=== PATIENT | female | born 1995 | race Caucasian/White ===

== ENCOUNTER 2020-08-23 09:07 | Outpatient (REF) | payer OTHER, SELFPAY ==
[2020-08-23 13:37] LABS: HCG Quantitative 657 mIU/mL
[2020-08-23 14:13] LABS: CT PCR NOT DETECTED (Not Detect.); NG PCR NOT DETECTED (Not Detect.)
[2020-08-24 15:15] LABS: BV Int Neg Control Negative (Negative); BV Int Pos Control Positive (Positive)
== END 2020-08-23 09:08 | disposition home or self-care (01) ==
LOC: HO.LAB 09:07
PROVIDERS: PCP Physician Assistant; Visit Provider Advanced Practice Midwife
DX: O20.0 Threatened abortion (principal); O26.891 Other specified pregnancy related conditions, first trimester; N92.6 Irregular menstruation, unspecified; R10.2 Pelvic and perineal pain; O99.211 Obesity complicating pregnancy, first trimester; E66.01 Morbid (severe) obesity due to excess calories; Z3A.00 Weeks of gestation of pregnancy not specified
CPT/HCPCS: 36415; 81025; 84702; 87480; 87491; 87510; 87591; 87660; 99212

== ENCOUNTER 2020-08-23 10:12 | Outpatient (REF) | payer OTHER, SELFPAY ==
--- NOTE | ~2020-08-23 | US_ITS ---
EXAMINATION: OBSTETRICAL ULTRASOUND, FIRST TRIMESTER HISTORY: 25-year-old with uncertain LMP Viability LMP: 07/22/2020 COMPARISON: None TECHNIQUE: Real time transabdominal imaging with color and M-mode Doppler. Transvaginal ultrasound was performed using an endovaginal probe. FINDINGS: Empty uterine cavity with the endometrial thickness of 1.12 cm. Left ovary contains an anechoic cyst that measures 3.6 x 2.4 x 2.5 cm. Left ovary measured 2.6 x 3.4 cm. There are no adnexal mass seen. Free fluid in the cul-de-sac is noted. GESTATIONAL AGE: 1. GA from LMP: 4.4 wks 2. GA from AUA: N/A wks ESTIMATED DATE OF DELIVERY: 1. PARK from LMP: 04/28/2021 2. PARK from AUA: N/A US/US OB pelvic and transvaginal IMPRESSION: 1. No evidence of IUP. 2. An anechoic cyst in the left ovary measuring 3.6 x 2.4 x 2.5 cm. Right ovary is within normal limits. No discrete adnexal mass seen 3. Free fluid in the cul-de-sac Discussion: I informed the patient that the today's ultrasound findings can be consistent with the early IUP. However given at this gestational age, we should be able to identify a intrauterine gestational sac. No discrete masses were seen in the adnexa. However ectopic cannot be ruled out. The source of the free fluid in the cul-de-sac is unclear. Agree with the serial serum beta-hCG levels. I gave her ectopic warnings. A follow-up ultrasound as clinically indicated. Thank you very much for this referral. This note was generated with a voice recognition program. Please excuse any errors which may have been overlooked during my review of this note. Sometimes these errors may affect the content or meaning of a given sentence.
== END 2020-08-23 10:13 | disposition home or self-care (01) ==
LOC: HO.US 10:12
PROVIDERS: PCP Physician Assistant; Visit Provider Advanced Practice Midwife
DX: O26.891 Other specified pregnancy related conditions, first trimester (principal); R10.2 Pelvic and perineal pain
CPT/HCPCS: 76801; 76817

== ENCOUNTER 2020-08-25 08:46 | Outpatient (REF) | payer OTHER, SELFPAY ==
[2020-08-25 10:05] LABS: HCG Quantitative 1052 mIU/mL
== END 2020-08-25 08:47 | disposition home or self-care (01) ==
LOC: HO.LAB 08:46
PROVIDERS: PCP Physician Assistant; Visit Provider Advanced Practice Midwife
DX: O20.0 Threatened abortion (principal)
CPT/HCPCS: 36415; 84702

== ENCOUNTER 2020-08-27 06:21 | Outpatient (REF) | payer OTHER, SELFPAY | END 2020-08-27 06:22 | disposition home or self-care (01) | LOC: HO.LAB 06:21 | PROVIDERS: PCP Physician Assistant; Visit Provider Advanced Practice Midwife | DX: Z13.89 Encounter for screening for other disorder (principal) ==

== ENCOUNTER 2020-08-27 06:32 | Emergency (ER) | payer OTHER, SELFPAY ==
--- NOTE | ~2020-08-27 | US_ITS ---
EXAMINATION: US OBSTETRICAL ULTRASOUND CLINICAL INFORMATION: Abdominal pain. Positive test. HCG 1952. COMPARISON: Previous exam 08/23/2020. LMP: 07/22/2020. Gestational age by maternal dates is 5 weeks 1 day. Estimated date of delivery by maternal dates is 04/28/2021. TECHNIQUE: Transabdominal and transvaginal first trimester OB ultrasound. Transvaginal exam was performed for better visualization of the gestational sac. FINDINGS: The uterus measures 8 x 4 x 5.3 cm in dimension. No focal uterine lesion is seen. There is an intrauterine cyst adjacent to the endometrium. This measures 0.5 x 0.6 x 0.4 cm. This has a thick echogenic wall suggestive of a gestational sac. There is also question of a yolk sac. Mean sac diameter suggests gestational age of 5 weeks 0 days. The cervix is normal appearing. The right ovary measures 2.5 x 1.4 x 1.6 cm. The left ovary measures 3.4 x 2.9 x 2.9 cm. There is a 3 x 2.8 x 3.5 cm simple left ovarian cyst. There is a a small amount of fluid in the pelvis. US/US OB <= 14 weeks fetus IMPRESSION: New intrauterine gestational sac and question yolk sac. Mean sac diameter suggests gestational age of 5 weeks 0 days. This agrees with date from LMP. 3 x 2.8 x 3.5 cm left ovarian cyst. Small amount of fluid in the pelvis.
--- NOTE | ~2020-08-27 | US_ITS ---
EXAMINATION: US OBSTETRICAL ULTRASOUND CLINICAL INFORMATION: Abdominal pain. Positive test. HCG 1952. COMPARISON: Previous exam 08/23/2020. LMP: 07/22/2020. Gestational age by maternal dates is 5 weeks 1 day. Estimated date of delivery by maternal dates is 04/28/2021. TECHNIQUE: Transabdominal and transvaginal first trimester OB ultrasound. Transvaginal exam was performed for better visualization of the gestational sac. FINDINGS: The uterus measures 8 x 4 x 5.3 cm in dimension. No focal uterine lesion is seen. There is an intrauterine cyst adjacent to the endometrium. This measures 0.5 x 0.6 x 0.4 cm. This has a thick echogenic wall suggestive of a gestational sac. There is also question of a yolk sac. Mean sac diameter suggests gestational age of 5 weeks 0 days. The cervix is normal appearing. The right ovary measures 2.5 x 1.4 x 1.6 cm. The left ovary measures 3.4 x 2.9 x 2.9 cm. There is a 3 x 2.8 x 3.5 cm simple left ovarian cyst. There is a a small amount of fluid in the pelvis. US/US OB transvaginal IMPRESSION: New intrauterine gestational sac and question yolk sac. Mean sac diameter suggests gestational age of 5 weeks 0 days. This agrees with date from LMP. 3 x 2.8 x 3.5 cm left ovarian cyst. Small amount of fluid in the pelvis.
[2020-08-27 07:23] VITALS: BP 135/79; PULSE 91; RESP 18; TEMP 36.7; O2SAT 100; BMI 46.0
--- NOTE | 2020-08-27 07:36 | ED.ABDPAIN ---
HPI - Abdominal Pain General Chief Complaint: Abdominal Pain Stated Complaint: PAIN RIGHT SIDE - 5 WEEKS PREG Time Seen by Provider: 08/27/20 07:36 Source: patient Mode of arrival: ambulatory Limitations: no limitations History of Present Illness HPI narrative: patient comes in because she is worried about a tubal MD elicited complaint: abdominal pain Pertinent past history: none Onset (ago): hour(s) Pain Consistency: intermittent Location: diffuse Severity: mild Quality: aching Radiation: RUQ, RLQ and R flank Exacerbating factors: nothing Relieving factors: nothing Related Data Previous Rx's Medication Instructions Recorded vitamin with calcium 1 tab PO DAILY #30 tab 08/23/20 no.72-iron 27 mg-folic acid 1 mg tablet Allergies Allergy/AdvReac Type Severity Reaction Status Date / Time No Known Allergies Allergy Verified 08/23/20 09:17 [No Known Allergies*] Review of Systems Constitutional: Reports no additional constitutional complaints Eyes: Reports no additional eye complaints Denies dizziness Cardiovascular: Reports no additional cardiovascular complaints Respiratory: Reports as per HPI Gastrointestinal: Reports no additional gastrointestinal complaints Genitourinary: Reports no additional female genitourinary complaints Musculoskeletal: Reports no additional musculoskeletal complaints Skin/Breast: Denies rash Reports system reviewed and no additional complaints, except as documented, Denies dizziness and Denies Sensory deficit (Neuro) Psychiatric: Denies anxiety Physical Exam Vital Signs: Vital Signs: Last Vital Signs Temp 98.3 F 08/27/20 12:48 Pulse 74 08/27/20 12:48 Resp 16 08/27/20 12:48 BP 109/59 L 08/27/20 12:48 Pulse Ox 99 08/27/20 12:48 Body Mass Index 46.0 Const: General: healthy appearing Nutritional Appearance: obese Orientation/consciousness: oriented to person and patient oriented x3 Limitations: no limitations HENMT: Head: Yes normal to inspection Ears: external ears normal General nose exam: Normal external nose present Mouth: Normal oral and palatal mucosa present and oropharynx normal Throat: Yes posterior oropharynx normal Eyes: General: appearance normal, both eyes and all related structures Neck: Other: supple Neck: Yes normal visual inspection Chest: Chest palpation & inspection: normal inspection of the chest Resp: Auscultation: clear to auscultation bilaterally Cardio: Jugular venous distension: no JVD Rate: regular rate Rhythm: regular rhythm Heart sounds: S1 normal heart sound present and S2 normal heart sound present GI: Inspection: Yes normal to inspection Palpation (GI): Soft to palpation, nontender and No hepatosplenomegaly present Auscultation: normal bowel sounds : General: Yes no CVA tenderness Back/Spine/Pelvis: Back: no CVA tenderness Skin: General skin exam: no rashes or lesions noted Neuro: General: oriented to person and patient oriented x3 Cranial nerves: Yes CN's II-XII intact bilaterally Motor exam (neuro): 5/5 motor strength present throughout Sensory Exam: No Sensory deficit (Neuro) Extrem: General: Yes normal to inspection Psych: Appearance: grossly normal MDM - Abdominal Pain MDM Narrative Medical decision making narrative: Patient with intrauterine will dc home Lab Data Result diagrams: 08/27/20 08:12 08/27/20 08:12 Labs: Lab Results 08/27/20 08/27/20 08/27/20 Range/Units 08:12 08:12 08:12 WBC 7.5 (4.8-10.8) X10*3/uL RBC 4.72 (4.20-5.50) X10*6/uL Hgb 12.7 (12.0-16.0) g/dl Hct 38.8 (37-47) % MCV 82.2 (80-98) fL MCH 26.9 L (27.0-33.0) pg MCHC 32.7 (31.0-35.0) g/dl RDW 13.2 (11.0-16.0) % Plt Count 311 (160-400) X10*3/uL MPV 9.9 (9.4-12.3) fL Immature Gran % (Auto) 0.4 (0.0-0.4) % Neut % (Auto) 67.9 (45-73) % Lymph % (Auto) 23.8 (20-40) % [place] % (Auto) 5.4 (2-11) % Eos % (Auto) 2.1 (0-4) % Baso % (Auto) 0.4 (0-2) % Lymph # (Auto) 1.8 (1.2-4.9) X10*3/uL [place] # (Auto) 0.4 (0.1-1.2) X10*3/uL Eos # (Auto) 0.2 (0.0-0.4) X10*3/uL Baso # (Auto) 0.0 (0.0-0.2) X10*3/uL Abs Immat Gran (auto) 0.03 (0.00-0.03) X10*3/uL Absolute Neuts (auto) 5.1 (2.0-8.3) X10*3/uL Absolute Nucleated RBC 0.000 (0.0-0.012) X10*3/uL Nucleated RBC % (auto) 0.0 (0.0-0.2) /100WBC Sodium 137 (135-145) mmol/L Potassium 4.2 (3.3-5.1) mmol/L Chloride 103 (96-108) mmol/L Carbon Dioxide 25 (22-29) mmol/L Anion Gap 13 (12-20) BUN 11 (9-16) mg/dL Creatinine 0.66 (0.5-1.4) mg/dL Estim Creat Clear Calc 154.5 Estimated GFR > 60 Random Glucose 92 (60-115) mg/dL Calcium 8.8 (8.4-10.2) mg/dL Total Bilirubin 0.3 (0.0-1.0) mg/dL Direct Bilirubin < 0.2 (0.0-0.5) mg/dL AST 14 (5-31) U/L ALT 16 (0-31) U/L Alkaline Phosphatase 77 (39-117) U/L Total Protein 7.0 (6.5-8.0) g/dL Albumin 4.2 (3.5-5.0) g/dL Lipase 48 (8-78) U/L Beta HCG, Quant 1952 mIU/mL Urine Color Urine Appearance Urine pH (5.0-8.0) Ur Specific [place] (1.005-1.025) Urine Protein (NEG-TRACE) MG/DL Urine Glucose (UA) (NEG) MG/DL Urine Ketones (NEG) MG/DL Urine Blood (NEG) Urine Nitrite (NEG) Ur Leukocyte Esterase (NEG) 08/27/20 Range/Units 08:19 WBC (4.8-10.8) X10*3/uL RBC (4.20-5.50) X10*6/uL Hgb (12.0-16.0) g/dl Hct (37-47) % MCV (80-98) fL MCH (27.0-33.0) pg MCHC (31.0-35.0) g/dl RDW (11.0-16.0) % Plt Count (160-400) X10*3/uL MPV (9.4-12.3) fL Immature Gran % (Auto) (0.0-0.4) % Neut % (Auto) (45-73) % Lymph % (Auto) (20-40) % [place] % (Auto) (2-11) % Eos % (Auto) (0-4) % Baso % (Auto) (0-2) % Lymph # (Auto) (1.2-4.9) X10*3/uL [place] # (Auto) (0.1-1.2) X10*3/uL Eos # (Auto) (0.0-0.4) X10*3/uL Baso # (Auto) (0.0-0.2) X10*3/uL Abs Immat Gran (auto) (0.00-0.03) X10*3/uL Absolute Neuts (auto) (2.0-8.3) X10*3/uL Absolute Nucleated RBC (0.0-0.012) X10*3/uL Nucleated RBC % (auto) (0.0-0.2) /100WBC Sodium (135-145) mmol/L Potassium (3.3-5.1) mmol/L Chloride (96-108) mmol/L Carbon Dioxide (22-29) mmol/L Anion Gap (12-20) BUN (9-16) mg/dL Creatinine (0.5-1.4) mg/dL Estim Creat Clear Calc Estimated GFR Random Glucose (60-115) mg/dL Calcium (8.4-10.2) mg/dL Total Bilirubin (0.0-1.0) mg/dL Direct Bilirubin (0.0-0.5) mg/dL AST (5-31) U/L ALT (0-31) U/L Alkaline Phosphatase (39-117) U/L Total Protein (6.5-8.0) g/dL Albumin (3.5-5.0) g/dL Lipase (8-78) U/L Beta HCG, Quant mIU/mL Urine Color YELLOW Urine Appearance HAZY Urine pH 6.5 (5.0-8.0) Ur Specific [place] 1.020 (1.005-1.025) Urine Protein NEG (NEG-TRACE) MG/DL Urine Glucose (UA) NEG (NEG) MG/DL Urine Ketones NEG (NEG) MG/DL Urine Blood NEG (NEG) Urine Nitrite NEG (NEG) Ur Leukocyte Esterase NEG (NEG) Imaging Data US - abdomen: Radiologist's impression: intrauterine Discharge Plan Discharge Clinical Impression: Intrauterine Patient Disposition: Home, Self-Care Instructions: (ED) Prescriptions: No Action Vitamin Plus Low Iron 27 mg iron- 1 mg tablet 1 tab PO DAILY Qty: 30 RF: 11 Referrals: Juan Garcia PA-C [Primary Care Provider] - 2 days [facility] Past Medical History Medical History Morbid obesity with BMI of 45.0-49.9, adult Family History Family History Maternal Grandmother History of breast cancer Social History Social History Alcohol intake: never Smoking Status: Never smoker Advance Directives: Yes Advance Directives Information Provided: Yes Advance Directives on File: No
[2020-08-27 08:15] LABS: MANUAL DIFF FLAG NO
[2020-08-27 08:21] LABS: Basophils Percent Auto 0.4 % (0-2); Eosinophils Absolute Auto 0.2 X10*3/uL (0.0-0.4); Eosinophils Percent Auto 2.1 % (0-4); Hematocrit 38.8 % (37-47); Hemoglobin 12.7 g/dl (12.0-16.0); Imm Gran Abs Auto 0.03 X10*3/uL (0.00-0.03); Imm Gran Pct Auto 0.4 % (0.0-0.4); Lymphocytes Absolute Auto 1.8 X10*3/uL (1.2-4.9); Lymphocytes Percent Auto 23.8 % (20-40); Mean Corpuscular HGB Conc 32.7 g/dl (31.0-35.0); Mean Corpuscular Hemoglobin 26.9 pg (27.0-33.0); Mean Corpuscular Volume 82.2 fL (80-98); Mean Platelet Volume 9.9 fL (9.4-12.3); Monocytes Absolute Auto 0.4 X10*3/uL (0.1-1.2); Monocytes Percent Auto 5.4 % (2-11); Neutrophils Absolute Auto 5.1 X10*3/uL (2.0-8.3); Neutrophils Percent Auto 67.9 % (45-73); Platelet Count 311 X10*3/uL (160-400); Red Blood Count 4.72 X10*6/uL (4.20-5.50); Red Cell Distribution Width 13.2 % (11.0-16.0); White Blood Count 7.5 X10*3/uL (4.8-10.8)
[2020-08-27 08:28] LABS: Glucose Urine UA NEG (NEG); Leukocyte Esterase Urine NEG (NEG); Nitrite Urine NEG (NEG); PH 6.5 (5.0-8.0); Urine Blood NEG (NEG); Urine Ketones NEG (NEG); Urine Protein NEG (NEG-TRACE)
[2020-08-27 08:29] LABS: Appearance Urine HAZY; Color Urine YELLOW
[2020-08-27 08:35] VITALS: BP 121/74; PULSE 76; RESP 20; TEMP 36.8; O2SAT 100
[2020-08-27 08:51] LABS: Lipase 48 U/L (8-78)
[2020-08-27 08:52] LABS: Alanine Aminotransferase 16 U/L (0-31); Albumin Level 4.2 g/dL (3.5-5.0); Alkaline Phosphatase 77 U/L (39-117); Anion Gap 13 (12-20); Aspartate Amino Transferase 14 U/L (5-31); Bilirubin Direct < 0.2 mg/dL (0.0-0.5); Bilirubin Total 0.3 mg/dL (0.0-1.0); Blood Urea Nitrogen 11 mg/dL (9-16); Calcium 8.8 mg/dL (8.4-10.2); Carbon Dioxide 25 mmol/L (22-29); Chloride 103 mmol/L (96-108); Creatinine Clr Calc Pharmacy 154.5; Estimated Glomerular Filt Rate > 60; Glucose Random 92 mg/dL (60-115); Potassium 4.2 mmol/L (3.3-5.1); Sodium 137 mmol/L (135-145)
[2020-08-27 08:59] LABS: HCG Quantitative 1952 mIU/mL
[2020-08-27 12:00] VITALS: BP 125/70; PULSE 75; RESP 20; O2SAT 100
[2020-08-27 12:48] VITALS: BP 109/59; PULSE 74; RESP 16; TEMP 36.8; O2SAT 99
== END 2020-08-27 13:10 | disposition home or self-care (01) ==
PROVIDERS: Emergency Provider Emergency Medicine; PCP Physician Assistant
DX: O26.891 Other specified pregnancy related conditions, first trimester (principal); R10.31 Right lower quadrant pain; R10.11 Right upper quadrant pain; Z3A.01 Less than 8 weeks gestation of pregnancy
CPT/HCPCS: 36415; 76801; 76817; 80048; 80076; 81003; 83690; 84702; 85025; 99284

== ENCOUNTER 2020-09-04 13:19 | Outpatient (REF) | payer OTHER, SELFPAY ==
--- NOTE | ~2020-09-04 | US_ITS ---
EXAMINATION: US OB PELVIS AND TRANSVAGINAL CLINICAL INFORMATION: Encounter for supervision of normal . COMPARISON: None TECHNIQUE: Routine transabdominal ultrasound pelvis is performed. FINDINGS: There is an intrauterine gestational sac with pole not yet seen. The mean sac diameter is 1.48 cm corresponding to 6 weeks and 2 days and an PARK of 04/28/2021. A small subchorionic bleed is visualized adjacent to the left ovary. There is visualization of yolk sac, gestational sac. No pole or motion seen. The right ovary measures 2.1 x 1.2 x 1.4 cm and appears unremarkable. The left ovary measures 3.5 x 3.4 x 3.5 cm with an anechoic corpus luteal cyst measuring 2.7 x 2.6 cm. There is no free fluid. US/US OB pelvic and transvaginal IMPRESSION: There is a single intrauterine gestational sac with a mean gestational sac measurement corresponding to 6 weeks 2 days. No pole is seen. The yolk sac is visualized. There is an anechoic cyst left ovary measuring 2.7 x 2.6 x 3.0 cm. The right ovary is unremarkable.
== END 2020-09-04 13:20 | disposition home or self-care (01) ==
LOC: HO.US 13:19
PROVIDERS: PCP Physician Assistant; Visit Provider Advanced Practice Midwife
DX: O26.891 Other specified pregnancy related conditions, first trimester (principal); R10.2 Pelvic and perineal pain
CPT/HCPCS: 76801; 76817

== ENCOUNTER 2020-09-11 13:58 | Outpatient (REF) | payer OTHER, SELFPAY ==
--- NOTE | ~2020-09-11 | US_ITS ---
EXAMINATION: US OBSTETRICAL ULTRASOUND CLINICAL INFORMATION: Threatened ; O20.0 COMPARISON: Obstetrical ultrasound 09/04/2020, 08/27/2020. LMP: 07/22/2020. Gestational age by maternal dates is 7 weeks 2 days. Estimated date of delivery by maternal dates is 04/28/2021. TECHNIQUE: Ultrasound of the maternal pelvis is performed using transabdominal and transvaginal transducers. Transvaginal imaging is performed due to inadequate visualization transabdominally. M-mode Doppler is also performed. FINDINGS: There is single intrauterine gestational sac with visible yolk sac and embryo. No embryo demonstrated on prior ultrasound 09/04/2020. There is small subchorionic hemorrhage/hematoma measuring under 1 cm. cardiac activity estimated at 93 bpm versus maternal sampling due to the small embryo size. CRL (crown rump length): 0.46 cm (6 weeks 2 days +/- 4 days). PARK (estimated date of delivery): 05/05/2021 +/- 4 days. MATERNAL ADNEXA: The right maternal ovary measures 3.0 x 1.3 x 1.4 cm. The left maternal ovary measures 4.2 x 3.1 x 3.7 cm. There is a simple left intraovarian cyst measuring 3.1 x 2.3 x 2.9 cm. No internal complexity or associated color flow. No maternal pelvic ascites. US/US OB pelvic and transvaginal IMPRESSION: 1. There is expected progression of the intrauterine , now with visible embryo. Small subchorionic hemorrhage under 1 cm. Embryo heart rate 93 bpm versus maternal sampling due to small size. This may be reassessed at follow-up ultrasound. 2. Ultrasound gestational age of 6 weeks 2 days +/- 4 days. 3. Estimated date of delivery is 05/05/2021 +/- 4 days. 4. Simple left maternal adnexal ovarian cyst 3 cm. No pelvic ascites.
== END 2020-09-11 13:59 | disposition home or self-care (01) ==
LOC: HO.HMGCX 13:58
PROVIDERS: Visit Provider Advanced Practice Midwife
DX: O20.0 Threatened abortion (principal); Z3A.00 Weeks of gestation of pregnancy not specified
CPT/HCPCS: 76801; 76817

== ENCOUNTER → 2020-09-19 11:36 | Outpatient (BNVA) | payer OTHER, SELFPAY | PROVIDERS: PCP Physician Assistant; Visit Provider Advanced Practice Midwife ==

== ENCOUNTER 2020-09-19 13:57 | Outpatient (REF) | payer OTHER, SELFPAY ==
--- NOTE | ~2020-09-19 | US_ITS ---
EXAMINATION: US OB PELVIC AND TRANSVAGINAL. CLINICAL INFORMATION: Follow up low FHR. Check viability. LMP 04/28/2021. COMPARISON: Ultrasound pelvis 09/11/2020, 09/04/2020, 08/27/2020 and 08/23/2020. TECHNIQUE: Transabdominal imaging of pelvis was performed. FINDINGS: A single live intrauterine fetus with a crown-rump length of 1.0 cm corresponding to 7 weeks and 1 day and PARK of 05/07/2021. The heart rate is low measuring 72 bpm. There is visualization of yolk sac and pole. The yolk sac is slightly enlarged. The uterus measures 8.8 cm in length, 4.3 cm in AP and 6.6 cm in transverse dimension. The right ovary measures 2.5 x 1.5 x 1.6 cm and appears unremarkable. Left ovary measures 3.6 x 2.8 x 3.6 cm. There is an anechoic cyst measuring 2.3 x 2.7 x 3.0 cm. There is no free fluid in the cul-de-sac. US/US OB pelvic and transvaginal IMPRESSION: Single live intrauterine fetus with a low heart rate of 72 bpm. Previously FHR measured 93 bpm. The yolk sac is slightly larger. Small left ovarian cyst measuring 3.0 cm. Previously it measured 3.1 cm.
== END 2020-09-19 13:58 | disposition home or self-care (01) ==
LOC: HO.US 13:57
PROVIDERS: PCP Physician Assistant; Visit Provider Advanced Practice Midwife
DX: O41.8X10 Other specified disorders of amniotic fluid and membranes, first trimester, not applicable or unspecified (principal); O46.8X1 Other antepartum hemorrhage, first trimester
CPT/HCPCS: 76801; 76817

== ENCOUNTER 2020-09-23 12:47 | Outpatient (REF) | payer OTHER, SELFPAY ==
--- NOTE | ~2020-09-23 | US_ITS ---
EXAMINATION: FIRST TRIMESTER OB ULTRASOUND CLINICAL INFORMATION: Threatened COMPARISON: Previous pelvic ultrasound most recent 09/19/2020 TECHNIQUE: Transabdominal first trimester OB ultrasound FINDINGS: There is a large intrauterine gestational sac. [place]-rump length measures 0.5 cm. This is decreased in size from 1 cm on 11/03/2020 exam. No heart activity is seen. There is a small subchorionic fluid collection. No yolk sac is seen. The right maternal ovary is not seen. The left maternal ovary measures 3.3 x 2.8 x 3.6 cm and contains a 2.5 x 2.3 x 3 cm simple cyst. There is no fluid in the pelvis pelvis. US/US OB pelvic and transvaginal IMPRESSION: Interval decrease in size in the pole and no heart activity seen suggestive of demise.
[2020-09-23 15:05] LABS: HCG Quantitative 64492 mIU/mL
== END 2020-09-23 12:48 | disposition home or self-care (01) ==
LOC: HO.HMGCX 12:47
PROVIDERS: PCP Physician Assistant; Visit Provider Advanced Practice Midwife
DX: O20.0 Threatened abortion (principal)
CPT/HCPCS: 36415; 76801; 76817; 84702

== ENCOUNTER → 2020-09-24 11:55 | Outpatient (BNVA) | payer OTHER, SELFPAY | PROVIDERS: PCP Physician Assistant; Visit Provider Advanced Practice Midwife | DX: Z71.2 Person consulting for explanation of examination or test findings (principal); O02.1 Missed abortion | CPT/HCPCS: 99212 ==

== ENCOUNTER → 2020-09-30 10:39 | Outpatient (BNVA) | payer OTHER, SELFPAY | PROVIDERS: PCP Physician Assistant; Visit Provider Obstetrics & Gynecology | DX: Z13.89 Encounter for screening for other disorder (principal) | CPT/HCPCS: 99212 ==

== ENCOUNTER 2020-10-04 09:36 | Outpatient (REF) | payer OTHER, SELFPAY ==
--- NOTE | ~2020-10-04 | US_ITS ---
EXAMINATION: ULTRASOUND OB LIMITED CLINICAL INFORMATION: Missed COMPARISON: Previous ultrasounds most recent 09/23/2020 TECHNIQUE: Transabdominal pelvic ultrasound was performed. FINDINGS: The uterus is anteverted and measures 9.8 x 4.7 x 5.3 cm in dimension. Intrauterine gestational sac is no longer seen. The endometrium does not appear thickened. Endometrial thickness measures 0.6 cm. The right ovary measures 2 x 1.3 x 1.8 cm and is normal-appearing. The left ovary measures 3.1 x 1.9 x 2.3 cm. There is a 1.7 x 1.1 x 1.6 cm simple cyst, decreased from previous exam. There is no fluid in the pelvis. US/US OB limited IMPRESSION: Intrauterine gestational sac no longer seen consistent with a spontaneous . The endometrium does not appear thickened measuring 0.6 cm.
== END 2020-10-04 09:37 | disposition home or self-care (01) ==
LOC: HO.US 09:36
PROVIDERS: Visit Provider Obstetrics & Gynecology
DX: O02.1 Missed abortion (principal)
CPT/HCPCS: 76815

== ENCOUNTER → 2020-10-16 10:52 | Outpatient (BNVA) | payer OTHER, SELFPAY | PROVIDERS: PCP Physician Assistant; Visit Provider Obstetrics & Gynecology ==

== ENCOUNTER 2021-07-01 13:32 | Outpatient (REF) | payer OTHER, SELFPAY ==
[2021-07-01 13:54] LABS: MANUAL DIFF FLAG NO
[2021-07-01 14:10] LABS: Basophils Percent Auto 0.3 % (0-2); Eosinophils Absolute Auto 0.1 X10*3/uL (0.0-0.4); Eosinophils Percent Auto 1.1 % (0-4); Hematocrit 41.3 % (37.0-47.0); Hemoglobin 13.3 g/dl (12.0-16.0); Imm Gran Abs Auto 0.04 X10*3/uL (0.00-0.03); Imm Gran Pct Auto 0.4 % (0.0-0.4); Lymphocytes Absolute Auto 1.3 X10*3/uL (1.2-4.9); Lymphocytes Percent Auto 12.5 % (20-40); Mean Corpuscular HGB Conc 32.2 g/dl (31.0-35.0); Mean Corpuscular Hemoglobin 26.2 pg (27.0-33.0); Mean Corpuscular Volume 81.5 fL (80.0-98.0); Mean Platelet Volume 9.7 fL (9.4-12.3); Monocytes Absolute Auto 0.5 X10*3/uL (0.1-1.2); Monocytes Percent Auto 5.2 % (2-11); Neutrophils Percent Auto 80.5 % (45-73); Platelet Count 371 X10*3/uL (160-400); Red Blood Count 5.07 X10*6/uL (4.20-5.50); Red Cell Distribution Width 13.1 % (11.0-16.0)
[2021-07-01 14:48] LABS: Alanine Aminotransferase 17 U/L (0-31); Albumin Level 4.4 g/dL (3.5-5.0); Alkaline Phosphatase 95 U/L (39-117); Anion Gap 12 (12-20); Aspartate Amino Transferase 15 U/L (5-31); Bilirubin Total 0.4 mg/dL (0.0-1.0); Blood Urea Nitrogen 9 mg/dL (9-16); Calcium 9.4 mg/dL (8.4-10.2); Carbon Dioxide 26 mmol/L (22-29); Chloride 105 mmol/L (96-108); Cholesterol 154 mg/dL; Estimated Glomerular Filt Rate > 60; Glucose Fasting 88 mg/dL (60-99); HDL Cholesterol 43 mg/dL; LDL Cholesterol Calculated 95 mg/dl; Sodium 139 mmol/L (135-145); Total Protein 7.6 g/dL (6.5-8.0); Triglycerides 83 mg/dL
[2021-07-01 14:51] LABS: Appearance Urine CLEAR; Color Urine YELLOW; Glucose Urine UA NEG (NEG); Leukocyte Esterase Urine TRACE (NEG); Nitrite Urine NEG (NEG); Specific Gravity - Urine >= 1.030 (1.005-1.025); UACC Culture Trigger YES; Urine Blood TRACE (NEG); Urine Ketones 40 MG/DL (NEG); Urine Protein NEG (NEG-TRACE)
[2021-07-01 15:02] LABS: Bacteria Urine 1+ /LPF; Mucus Urine 1+ /LPF; Squamous Epithelial Cell Urine 1+ /LPF
[2021-07-01 15:07] LABS: TSH reflex Free T4 1.37 uIU/mL (0.32-4.0); Vitamin D 25-OH Total 7.1 ng/mL (>30)
[2021-07-01 15:38] LABS: Folate 10.8 ng/mL (> or = 4.0); Vitamin B12 328 pg/mL (200-900)
[2021-07-01 17:35] LABS: CT PCR NOT DETECTED (Not Detect.)
[2021-07-01 17:36] LABS: NG PCR NOT DETECTED (Not Detect.)
[2021-07-02 03:44] LABS: HBS Num1 6.98 mIU/mL (0-7.99); HBc Num1 0.19 S/CO (0.00-0.79); HIV AB/AG Nonreactive (Nonreactive); HIV Num 1 0.11 S/CO (0.00-0.99); Hepatitis B Core Antibody Nonreactive (Nonreactive); ~Hepatitis B Surface Antibody NONREACTIVE (Nonreactive)
[2021-07-02 03:45] LABS: Syphilis Screen Nonreactive (Nonreactive)
[2021-07-02 03:58] LABS: HBsAGNum1 0.16 S/CO (0.00-0.99); Hepatitis B Surface Antigen Negative (Negative); ~HepC Num1 0.09 S/CO (0.00-0.79); ~Hepatitis C Antibody Nonreactive (Nonreactive)
[2021-07-03 05:31] LABS: Herpes Simplex Type 2 IgG <0.90 index
== END 2021-07-01 13:33 | disposition home or self-care (01) ==
LOC: HO.LAB 13:32
PROVIDERS: PCP Nurse Practitioner Family; Visit Provider Nurse Practitioner Family
DX: Z13.29 Encounter for screening for other suspected endocrine disorder (principal); Z13.220 Encounter for screening for lipoid disorders; Z11.3 Encounter for screening for infections with a predominantly sexual mode of transmission; R21 Rash and other nonspecific skin eruption
CPT/HCPCS: 80053; 80061; 81001; 82306; 82607; 82746; 84443; 85025; 86695; 86696; 86704; 86706; 86780; 86803; 87086; 87340; 87389; 87491; 87591

== ENCOUNTER 2024-04-28 09:56 | Outpatient (AMB) | payer OTHER, SELFPAY ==
--- NOTE | 2024-04-28 09:59 | A.OFFPC_ITS ---
Vital Signs 04/28/24 10:00 Height 5 ft 2 in Weight 254 lb 2 oz BMI 46.5 BP 120/66 Blood Pressure Location Lt brachial Position Sitting Pulse 75 Pulse Source Pulse Oximeter Pulse Oximetry (%) 98 Oxygen Delivery Method Room Air Intake Visit Reasons: annual exam/ld Intake Note: Patient is here today for a physical. Audio Engineer Required: No Retail Service Specialist: Not Required per policy Accompanied by: Self / Same As Patient Allergies No Known Allergies [No Known Allergies*] Allergy (Verified 04/28/24 10:14) Medication List - Last Reconciled 04/28/24 by Rubina Casey PA-C norgestimate-ethinyl estradiol 0.25-35 mg-mcg 1 tab PO DAILY triamcinolone acetonide 0.1% 1 appl topical DAILY 14 days Tobacco use date assessed: 04/28/24 Dental Screening Dental Screen Date: 04/28/24 Did you have a dental visit in the last 12 months?: Yes Did you have a dental problem in the last 6 months where you did not have access to dental care?: No Was dental information given to patient?: Patient has dentist HPI annual exam/ld HPI Details 29-year-old female with past medical his tory of anxiety and eczema last seen by nurse practitioner 2021 coming to the office for annual exam. Patient follows with [facility] for annual Pap smears and sees an eye doctor regularly. She does mentioned having occasional anxiety which is not a concern for her. She is concerned however about her easy distractibility and finds she has difficulty concentrating and maintaining eye contact. She also mentioned she has been working on weight loss and has lost about 20 lb in the last year but has found that her weight loss has plateaued and is interested in injections for weight loss. [facility] Medical History Pelvic pain affecting Morbid obesity with BMI of 45.0-49.9, adult Surgical History No pertinent past surgical history Family History Maternal Grandmother History of breast cancer Social History Housing: Apartment Alcohol intake: never Patient Tobacco Use Status: Never used Tobacco e-Cigarette/Vaping Use: Never Used Second Hand Smoke Exposure: No service: No Current occupational status: employed Cognitive needs: No Hearing needs: No Vision needs: Yes (Glasses) Female Reproductive History Menstrual Full term: 1 History of abnormal pap smear: No Questionnaire PHQ-9 Over the last 2 weeks, how often have you been bothered by any of the following problems? 1. Little interest or pleasure in doing things: not at all 2. Feeling down, depressed, or hopeless: not at all 3. Trouble falling or staying asleep, or sleeping too much: not at all 4. Feeling tired or having little energy: not at all 5. Poor appetite or overeating: not at all 6. Feeling bad about yourself - or that you are a failure or have let yourself or your family down: not at all 7. Trouble concentrating on things, such as reading the newspaper or watching television: not at all 8. Moving or speaking so slowly that other people could have noticed. Or the opposite - being so fidgety or restless that you have been moving around a lot more than usual: not at all 9. Thoughts that you would be better off or of hurting yourself in some way: not at all Total score: 0 Depression Screening Interpretation: Negative Depression Screening Done: Yes Source: Developed by Drs. Colton Whitmore, Chula Moreira, Golden Patrick and colleagues, with an educational miguel angel from [employer]. Thrive Questionnaire Date Thrive assessed: 04/28/24 I am a: Patient What is your living situation today?: I have a steady place to live Within the past 12 months, did the food you bought not last and you didn't have the money to get more?: Never true Within the past 12 months, did you worry whether your food would run out before you got money to buy more?: Never true Do you have trouble paying for medicines?: No Do you have trouble getting transportation to medical appointments?: No Do you have trouble paying your heating and electricity bill?: No Do you have trouble taking care of your child, family member or friend?: No Do you have trouble with day-to-day activities such as bathing, preparing meals, shopping, managing finances, etc.?: No Are you currently unemployed and looking for a job?: No Are you interested in more education?: No Please select the resources that you would like help with: None Currently or been in a relationship where the following occur: No concerns reported THRIVE Score: 0 AUDIT C Alcohol Use Questionnaire (AUDIT-C) 1. How often do you have a drink containing alcohol?: Never Total Score: 0 BRENNAN-7 AMB Questionnaire BRENNAN-7 Date BRENNAN - 7 assessed: 04/28/24 Feeling nervous, anxious, or on edge: 0 = Not at all Not being able to stop or control worryin = Not at all Worrying too much about different things: 0 = Not at all Trouble relaxin = Not at all Being so restless that it is hard to sit still: 0 = Not at all Becoming easily annoyed or irritable: 0 = Not at all Feeling afraid as if something awful might happen: 0 = Not at all Total BRENNAN-7 score (0-4 normal; 5-9 mild; 10-14 moderate; 15-21 severe): 0 Source: Developed by Drs. Colton Whitmore, Chula Moreira, Golden Patrick and colleagues, with an educational miguel angel from [employer]. Review of Systems Const Denies body aches, Denies chills, Denies fever(s), Denies headache(s) and Denies poor appetite Eyes Reports no additional complaints ENT Denies dysphagia, Denies dizziness, Denies headache(s) and Denies odynophagia Card Denies chest pain, Denies syncope, Denies edema, Denies irregular heart rhythm, Denies lightheadedness and Denies dyspnea Resp Denies cough and Denies dyspnea GI Denies abdominal pain, Denies constipation, Denies dysphagia, Denies diarrhea, Denies nausea, Denies odynophagia and Denies vomiting Reports no additional complaints Musc Reports no additional complaints and Denies abnormal gait Skin/Breast Reports system reviewed and no additional complaints, except as documented Neuro Denies abnormal gait, Denies dizziness, Denies syncope and Denies headache(s) Psych Reports no additional complaints Physical exam (Primary Care) Vital Signs: Last Vital Signs Pulse 75 04/28/24 10:00 BP 120/66 04/28/24 10:00 Pulse Ox 98 04/28/24 10:00 Oxygen Delivery Method Room Air 04/28/24 10:00 BMI result Body Mass Index 46.5 Tobacco/Smoking Status: Tobacco use Status Tobacco use date assessed 04/28/24 04/28/24 10:06 Patient Tobacco Use Status Never used Tobacco 04/28/24 10:06 e-Cigarette/Vaping Use Never Used 04/28/24 10:06 PHQ-9: PHQ-9 Score PHQ-9: Total score 0 04/28/24 10:09 Depression Screening Interpretation: Negative Thrive Assessment: Date of Thrive Assessment Date Thrive assessed 04/28/24 04/28/24 10:06 Currently or been in a relationship where the following occur: No concerns reported Const General: cooperative, healthy appearing, comfortable and no acute distress Orientation/consciousness: patient oriented x3 HENMT Head: Yes normocephalic Ears: hearing grossly normal bilaterally General nose exam: Normal external nose present Face and sinus: Yes normal facial exam and Yes sinuses nontender Mouth: Normal oral and palatal mucosa present and tongue normal Throat: Yes posterior oropharynx normal Eyes General: appearance normal, both eyes and all related structures Conjunctivae: conjunctivae normal Pupils: Equal, round and reactive pupils present EOM: EOMs intact bilaterally and No Nystagmus present Neck Neck: Yes full ROM and Yes no lymphadenopathy Chest Chest palpation & inspection: normal inspection of the chest Resp Effort & Inspection: normal respiratory effort Auscultation: clear to auscultation bilaterally, no crackles, no rales, no rhonchi and no wheezes Cardio Rate: regular rate Rhythm: regular rhythm Peripheral pulses: radial pulses present and dorsalis pedis present GI Inspection: Yes normal to inspection and No Abdominal wall edema Palpation (GI): Soft to palpation, not firm and nontender Auscultation: normal bowel sounds Rectal Exam - Female: deferred General: Yes no CVA tenderness Back/Spine/Pelvis Back: no CVA tenderness Skin General skin exam: no rashes or lesions noted Neuro General: patient oriented x3 Cranial nerves: Yes Equal, round and reactive pupils present, Yes Midline tongue present, Yes Ability to bilaterally elevate shoulders present and No Nystagmus present Gait exam (Neuro): Normal gait present Extrem General: Yes normal to inspection, Yes full ROM and No edema Psych Speech and movement: Normal speech and movement present Affect: normal affect Attitude: cooperative Insight: Good insight present (Psych) Judgement: Good judgement present (Psych) Office Procedures Flu Questionnaire Does the patient have a severe egg allergy?: No Does the patient have severe life threatening allergies?: No Does the patient have a fever or illness today?: No Has the patient ever had Guillain-Ravenel Syndrome?: No Has the patient ever had any past reaction to a flu shot?: No Immunizations Fluarix Triv [id number] (PF) 45 mcg (15 mcg x 3)/0.5 mL IM syringe Performing Provider: Rubina Casey PA-C [facility] [place] [facility] Administered by: Nichol Dougherty LPN on 04/28/24 10:14 Dose Route Admin Location Dispensed Lot Number Expiration Date [facility] [employer] 0.5 mL IM Left Deltoid 0.5 mL [id number] 11/13/24 [id number] FIXO VIS Given Date VIS Provided VIS Publication Date 04/28/24 Single Vaccine 20 Eligibility Eligibility Date Funding Source Not [facility] Eligible 04/28/24 Private Coding Level of Care Code Est Pt Level 3 (63175) Est Pt Prev Care 18-39y(14728) Diagnoses Low vitamin D level R79.89 Anxiety F41.9 Eczema L30.9 Morbid obesity with BMI of 45.0-49.9, adult E66.01; Z68.42 Annual physical exam Z00.00 Difficulty concentrating R41.840 Assessment & Plan Assessment & Plan (1) Low vitamin D level: Code(s): R79.89 - Other specified abnormal findings of blood chemistry Category: Medical Plan: Continue to monitor blood work not currently on supplement (2) Anxiety: Code(s): F41.9 - Anxiety disorder, unspecified Category: Medical Plan: Declining counselor medication at this time (3) Eczema: Code(s): L30.9 - Dermatitis, unspecified Category: Medical Plan: Continue to use triamcinolone as needed for eczema break out. (4) Morbid obesity with BMI of 45.0-49.9, adult: Code(s): E66.01 - Morbid (severe) obesity due to excess calories; Z68.42 - Body mass index [BMI] 45.0-49.9, adult Category: Medical Plan: Healthy diet and regular exercise is encouraged. Discussed at length indication for GLP 1 injections, side effects and dosing schedule. Patient understands and would like to try 1 of these medications. We will send semaglutide 0.25 mg advised patient to have blood work completed 1st and then again in 1 month to monitor kidney and liver function. We will follow up in 3 months. (5) Annual physical exam: Code(s): Z00.00 - Encounter for general adult medical examination without abnormal findings Category: Medical Plan: Patient is up-to-date on all recommended routine screenings and vaccinations for her age. Flu shot was given today. Continue with healthy diet and regular exercise. Ordered for updated blood work. (6) Difficulty concentrating: Code(s): R41.840 - Attention and concentration deficit Category: Medical Plan: Patient declining counselor at this time we will refer to outpatient psych clinic for diagnosis and treatment. Plan This note was constructed using voice recognition software. While every effort has been made to ensure accuracy and head of store operations, still areas may have been included sometimes these areas may affect the content or meeting of the given symptoms. Total time spent caring for the patient today was 30 minutes. This includes time spent before the visit reviewing the chart, time spent during the visit, and time spent after the visit and documentation. Orders: Orders Influenza [id number] Immunization Today Z23 - Encounter for immunization Comprehensive Met. Panel Today Z00.00 - Encounter for general adult medical examination without abnormal findings Lipid Panel Today E78.00 - Pure hypercholesterolemia, unspecified TSH reflex Free T4 Today Z00.00 - Encounter for general adult medical examination without abnormal findings Hemoglobin A1c Today E66.01 - Morbid (severe) obesity due to excess calories, Z68.42 - Body mass index [BMI] 45.0-49.9, adult Complete Blood Count Auto Diff Today Z00.00 - Encounter for general adult medical examination without abnormal findings Free T4 (Free Thyroxine) Today Z00.00 - Encounter for general adult medical examination without abnormal findings Vitamin B12 and Folate Today Z00.00 - Encounter for general adult medical examination without abnormal findings Vitamin D 25-OH Total Today Z00.00 - Encounter for general adult medical examination without abnormal findings Comprehensive Met. Panel 1 Month E66.01 - Morbid (severe) obesity due to excess calories, Z68.42 - Body mass index [BMI] 45.0-49.9, adult Referrals Psychiatry Outpatient Consultation Service R41.840 - Attention and concentration deficit Medications: New semaglutide for weeks 1-4 0.25 mg (0.368 mL) subcut QWEEK 3 mL 0RF
[2024-04-28 10:00] VITALS: BP 120/66; PULSE 75; O2SAT 98; BMI 46.5
== END 2024-04-28 10:33 | disposition home or self-care (01) ==
PROVIDERS: PCP Nurse Practitioner Family
DX: Z00.00 Encounter for general adult medical examination without abnormal findings (principal); R79.89 Other specified abnormal findings of blood chemistry; F41.9 Anxiety disorder, unspecified; L30.9 Dermatitis, unspecified; E66.01 Morbid (severe) obesity due to excess calories; Z68.42 Body mass index [BMI] 45.0-49.9, adult; R41.840 Attention and concentration deficit; Z23 Encounter for immunization

== ENCOUNTER 2024-04-28 09:56 | Outpatient (REF) | payer OTHER, SELFPAY ==
[2024-04-28 10:59] LABS: MANUAL DIFF FLAG NO
[2024-04-28 11:34] LABS: Basophils Absolute Auto 0.1 X10*3/uL (0.0-0.2); Basophils Percent Auto 0.8 % (0-2); Eosinophils Absolute Auto 0.4 X10*3/uL (0.0-0.4); Eosinophils Percent Auto 5.2 % (0-4); Hematocrit 38.6 % (37.0-47.0); Hemoglobin 12.9 g/dl (12.0-16.0); Imm Gran Abs Auto 0.04 X10*3/uL (0.00-0.03); Imm Gran Pct Auto 0.5 % (0.0-0.4); Lymphocytes Absolute Auto 1.7 X10*3/uL (1.2-4.9); Lymphocytes Percent Auto 21.9 % (20-40); Mean Corpuscular HGB Conc 33.4 g/dl (31.0-35.0); Mean Corpuscular Hemoglobin 26.5 pg (27.0-33.0); Mean Corpuscular Volume 79.4 fL (80.0-98.0); Mean Platelet Volume 9.8 fL (9.4-12.3); Monocytes Absolute Auto 0.5 X10*3/uL (0.1-1.2); Monocytes Percent Auto 6.4 % (2-11); Neutrophils Absolute Auto 5.1 x10*3/uL (2.0-8.3); Neutrophils Percent Auto 65.2 % (45-73); Platelet Count 293 X10*3/uL (160-400); Red Blood Count 4.86 X10*6/uL (4.20-5.50); Red Cell Distribution Width 13.1 % (11.0-16.0); White Blood Count 7.9 X10*3/uL (4.8-10.8)
[2024-04-28 11:47] LABS: Estimated Average Glucose 97 mg/dL; Hemoglobin A1C 101.2086 umol/L; Total Hemoglobin (HGBA1C) 3212.5663 umol/L
[2024-04-28 12:16] LABS: Alanine Aminotransferase 17 U/L (0-31); Albumin Level 3.7 g/dL (3.5-5.0); Alkaline Phosphatase 101 U/L (39-117); Anion Gap 10 (12-20); Aspartate Amino Transferase 22 U/L (5-31); Bilirubin Total 0.3 mg/dL (0.0-1.0); Blood Urea Nitrogen 9 mg/dL (9-16); Carbon Dioxide 25 mmol/L (22-29); Chloride 106 mmol/L (96-108); Cholesterol 155 mg/dL (<200); Estimated Glomerular Filt Rate > 60; Free T4 (Free Thyroxine) 1.13 ng/dL (0.71-1.85); Glucose Random 81 mg/dL (60-115); HDL Cholesterol 49 mg/dL (>40); LDL Cholesterol Calculated 91 mg/dL (<100); Potassium 4.3 mmol/L (3.3-5.1); Sodium 137 mmol/L (135-145); TSH reflex Free T4 1.78 uIU/mL (0.32-4.0); Total Protein 7.1 g/dL (6.5-8.0); Triglycerides 79 mg/dL (<150); Vitamin D 25-OH Total 10.8 ng/mL (>30)
[2024-04-28 12:32] LABS: Folate 8.8 ng/mL (> or = 4.0); Vitamin B12 266 pg/mL (200-900)
== END 2024-04-28 09:57 | disposition home or self-care (01) ==
LOC: HO.LAB 09:56
DX: Z00.00 Encounter for general adult medical examination without abnormal findings (principal); Z23 Encounter for immunization; E55.9 Vitamin D deficiency, unspecified; F41.9 Anxiety disorder, unspecified; L30.9 Dermatitis, unspecified; E66.01 Morbid (severe) obesity due to excess calories; Z68.42 Body mass index [BMI] 45.0-49.9, adult; R41.840 Attention and concentration deficit; E78.00 Pure hypercholesterolemia, unspecified
CPT/HCPCS: 36415; 80053; 80061; 82306; 82607; 82746; 83036; 84439; 84443; 85025; 90471; 90656; 96127; 99212; 99395

== ENCOUNTER 2024-06-06 07:48 | Outpatient (REF) | payer OTHER, SELFPAY ==
[2024-06-06 09:10] LABS: Alanine Aminotransferase 50 U/L (0-31); Albumin Level 3.8 g/dL (3.5-5.0); Alkaline Phosphatase 104 U/L (39-117); Anion Gap 11 (12-20); Aspartate Amino Transferase 25 U/L (5-31); Bilirubin Total 0.2 mg/dL (0.0-1.0); Blood Urea Nitrogen 9 mg/dL (9-16); Calcium 8.6 mg/dL (8.4-10.2); Carbon Dioxide 23 mmol/L (22-29); Chloride 107 mmol/L (96-108); Estimated Glomerular Filt Rate > 60; Glucose Random 82 mg/dL (60-115); Potassium 3.9 mmol/L (3.3-5.1); Sodium 137 mmol/L (135-145); Total Protein 7.5 g/dL (6.5-8.0)
== END 2024-06-06 07:49 | disposition home or self-care (01) ==
LOC: HO.LAB 07:48
DX: E66.01 Morbid (severe) obesity due to excess calories (principal); Z68.42 Body mass index [BMI] 45.0-49.9, adult
CPT/HCPCS: 36415; 80053

== ENCOUNTER → 2024-06-26 08:16 | Outpatient (BNVA) | payer OTHER, SELFPAY | PROVIDERS: Visit Provider Physician Assistant Surgical ==

== ENCOUNTER 2024-07-07 07:55 | Outpatient (AMB) | payer OTHER, SELFPAY ==
--- NOTE | 2024-07-07 08:46 | A.OFFVIS_ITS ---
VS Expanded 07/07/24 08:55 Height 5 ft 2 in Weight 246 lb BMI 45.0 Body Fat % 53 Body Fat Mass 130.2 Fat Free Mass 115.6 Visceral Fat Rating 15 Body Water % 33.8 Body Water Mass 83.2 Basal Metabolic Rate/Score 1,716 Intake Visit Reasons: [employer] SWL vs MWL BMI 45 Allergies No Known Allergies [No Known Allergies*] Allergy (Verified 07/07/24 08:46) Medication List - Last Reconciled 07/07/24 by Johnny Carvajal MD norgestimate-ethinyl estradiol 0.25-35 mg-mcg 1 tab PO DAILY triamcinolone acetonide 0.1% 1 appl topical DAILY 14 days HPI HPI [employer] SWL vs MWL BMI 45: Details: Start time: 8.40am, End time: 9.28am ?I spent 43 minutes speaking with the patient on the phone plus an additional 5 minutes reviewing and updating records for a total of 48 minutes HPI Comments Details: 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 Previous weight loss: Calorie counting (my net diary nusrat): lost 30lbs, Ozempic for 1 month: lost 6lbs Wakes up: 7am, Sleeps: 9pm Breakfast: 9am (egg bites) Lunch: 12.30pm (salad, sandwich) Dinner: 5pm (rice, chicken, pork chops) Snacks: 3pm (crackers, cheese cubes, Build protein bar) Exercise: none Fluids: Coffee: none, tea: none, soda: diet Coke, Juice: Liquid IV, ETOH: none PFSH Medical History (Updated 06/07/24 @ 08:37 by Rubina Casey PA-C) Pelvic pain affecting Morbid obesity with BMI of 45.0-49.9, adult Surgical History No pertinent past surgical history Family History (Updated 05/05/24 @ 07:47 by Rubina Casey PA-C) Maternal Grandmother History of breast cancer Mother Diabetes mellitus Social History Housing: Apartment Alcohol intake: never Patient Tobacco Use Status: Never used Tobacco e-Cigarette/Vaping Use: Never Used Second Hand Smoke Exposure: No service: No Current occupational status: employed Cognitive needs: No Hearing needs: No Vision needs: Yes (Glasses) Telehealth Telehealth Telehealth Platform: Telephone Location of provider rendering services: practice address Location of patient: address on file Patient Identification confirmed using: Name, : Yes Telehealth method: voice only Patient verbally consented to treatment: Yes Patient verbally consented to billing insurance company: Yes Patient informed of any privacy concerns related to visit: Yes Minutes spent on Phone/Video with Pt.: 48 Assessment & Plan Assessment & Plan (1) Morbid obesity with BMI of 45.0-49.9, adult: Code(s): E66.01 - Morbid (severe) obesity due to excess calories; Z68.42 - Body mass index [BMI] 45.0-49.9, adult Category: Medical Plan: 1.? Plan for lap sleeve gastrectomy. If diaphragmatic or ventral hernias are present at time of surgery, these will be repaired laparoscopically as well. I emphasized the importance of close follow-up, adherence to instructions and good communication. The surgery does not replace the need to change your lifestlyle which is the cause of the obesity problem. The surgery provides the motivation to try again to change your lifestyle, it reduces the appetite and make the transition to a better lifestyle easier and doubles the amount of weight you would lose compared to doing the lifestyle change without the surgery. You will need to be on a liquid diet with protein shakes for 2 weeks before surgery to maximize weight loss and boost your nutritional status to recover better from surgery and also for the first two weeks after surgery to let the stomach heal before we introduce other foods. After the first 2 weeks we will introduce protein bars and soft foods like scrambled eggs, cottage cheese and yogurt and after the 6th week will introduce meat, fish and cooked vegetables in small amounts. Over time you should be able to eat everything in small amounts. Side effects like nausea, vomiting, heartburn or abdominal pain are not common in the practice unless you are not following in the practice. This operation requires lifetime commitment to following in our practice and communication with me. You will much less weight and experience side effects if you don?t communicate or not following in the practice. Complications are rare and in our practice is about 1/10 of the national average. However, you can develop bleeding that may require transfusion (hasn?t happened for year in the practice), you may from complications (we did not have any deaths in the practice) and infections. Infections are usually a result of breakdown in communication or not understanding or following directions correctly. They are difficult to treat, they can happen during the first 6 weeks, they may require to be in the hospital for weeks or even months, not being able to eat by mouth and you may have drains and surgeries to try and correct the issue. Other risks and complications include possible conversion to an open procedure, leaks, small bowel obstruction, blood clots, cardiac, or pulmonary complications, as custodial complications such as ulcers, insufficient weight loss and vitamin deficiencies. 2. You will receive a link of our software nusrat to generate an individualized nutritional and exercise plan specific for you. Please send me a screenshot of the plans you will generate Meal to include lean meat (beef, fish, pork, turkey, chicken), or latvian yogurt, or egg whites, or beans with a salad with olive oil and fruits (berries, pears, apples, kiwi). Avoid salt, breads, potatoes, rice, pasta, desserts. ?3. If you choose shakes, each shake would be drunk slowly, like coffee in a period of 2 hours. ?4. If you choose bars, cut each bar in 4 pieces and eat each piece in 30min ?to make each bar last 2 hours. ?5. I emphasized the importance of measuring accurately the food portion and measure it when serving the food in plate ?6. The meal portions include a specific number of forks of meat and salad. You always eat the meat portion but you can replace up to half of salad/vegetables portion with rice, potatoes or pasta, or a fruit ?if you like. The less you do it the better weight loss will be. ?7. One full-size fork is what it can be scooped on the fork without falling aside and not what can be bit with the fork. Use regular forks like those you find in a typical restaurant. ?8.? Please buy the body composition scale we discussed and send me weight measurements as soon as possible and then once a week. Always include your diet and exercise plan. 9. The best choice would be to purchase a stationary bike, elliptical or treadmill at home that can track calories. Let me know if you do so I can give you an exercise plan. ?10.?It is important of avoiding and for at least 18 months postoperatively and has been discussed at the infosession. ?11. Goal is to lose at least 1.5-2lbs per week ?12. Goal to lose 10% of your weight before surgery, which is about 26lbs. Ultimate weight goal: 220lbs before surgery 13. Please follow the diet plan exactly without any change. If you don't like something about the plan or you feel hungry you need to communicate with me so I can help you revise the plan. You should not change the plan yourself. 14. To be scheduled for EGD to assess the stomach's anatomy. The possibility of biopsies was discussed. Patient needs to avoid use of NSAIDs and aspirin for 1 week prior to EGD. You must be on liquids only the day before your endoscopy. Risks of perforation and bleeding was discussed with the patient. This will be an outpatient procedure with IV sedation. Orders: Orders Insulin Today E66.01 - Morbid (severe) obesity due to excess calories, Z68.42 - Body mass index [BMI] 45.0-49.9, adult Comprehensive Met. Panel Today E66.01 - Morbid (severe) obesity due to excess calories, Z68.42 - Body mass index [BMI] 45.0-49.9, adult Vitamin B12 and Folate Today E66.01 - Morbid (severe) obesity due to excess calories, Z68.42 - Body mass index [BMI] 45.0-49.9, adult Zinc Today E66.01 - Morbid (severe) obesity due to excess calories, Z68.42 - Body mass index [BMI] 45.0-49.9, adult C Reactive Protein Today E66.01 - Morbid (severe) obesity due to excess calories, Z68.42 - Body mass index [BMI] 45.0-49.9, adult Vitamin B1 Today E66.01 - Morbid (severe) obesity due to excess calories, Z68.42 - Body mass index [BMI] 45.0-49.9, adult TSH reflex Free T4 Today E66.01 - Morbid (severe) obesity due to excess calories, Z68.42 - Body mass index [BMI] 45.0-49.9, adult Ferritin Today E66.01 - Morbid (severe) obesity due to excess calories, Z68.42 - Body mass index [BMI] 45.0-49.9, adult Vitamin D 25-OH Total Today E66.01 - Morbid (severe) obesity due to excess calories, Z68.42 - Body mass index [BMI] 45.0-49.9, adult XR chest 2V Today E66.01 - Morbid (severe) obesity due to excess calories, Z68.42 - Body mass index [BMI] 45.0-49.9, adult ECG 12 lead EKG Today E66.01 - Morbid (severe) obesity due to excess calories, Z68.42 - Body mass index [BMI] 45.0-49.9, adult Hemoglobin A1c Today E66.01 - Morbid (severe) obesity due to excess calories, Z68.42 - Body mass index [BMI] 45.0-49.9, adult H Pylori Breath Test Today E66.01 - Morbid (severe) obesity due to excess calories, Z68.42 - Body mass index [BMI] 45.0-49.9, adult Complete Blood Count Auto Diff Today E66.01 - Morbid (severe) obesity due to excess calories, Z68.42 - Body mass index [BMI] 45.0-49.9, adult Lipid Panel Today E66.01 - Morbid (severe) obesity due to excess calories, Z68.42 - Body mass index [BMI] 45.0-49.9, adult IRON PROFILE Today E66.01 - Morbid (severe) obesity due to excess calories, Z68.42 - Body mass index [BMI] 45.0-49.9, adult Vitamin A Today E66.01 - Morbid (severe) obesity due to excess calories, Z68.42 - Body mass index [BMI] 45.0-49.9, adult US abdomen comp w elastography Today E66.01 - Morbid (severe) obesity due to excess calories, Z68.42 - Body mass index [BMI] 45.0-49.9, adult FL upper GI w air Today E66.01 - Morbid (severe) obesity due to excess calories, Z68.42 - Body mass index [BMI] 45.0-49.9, adult Referrals Nutrition/Dietitian Referral E66.01 - Morbid (severe) obesity due to excess calories, Z68.42 - Body mass index [BMI] 45.0-49.9, adult Behavioral Health Referral E66.01 - Morbid (severe) obesity due to excess calories, Z68.42 - Body mass index [BMI] 45.0-49.9, adult
[2024-07-07 08:55] VITALS: BMI 45.0
== END 2024-07-07 09:29 | disposition home or self-care (01) ==
LOC: HO.HBS 07:55
PROVIDERS: Visit Provider Surgery
DX: E66.01 Morbid (severe) obesity due to excess calories (principal); Z68.42 Body mass index [BMI] 45.0-49.9, adult
CPT/HCPCS: 99204

== ENCOUNTER 2024-07-11 11:47 | Outpatient (REF) | payer OTHER, SELFPAY ==
--- NOTE | ~2024-07-11 | XR_ITS ---
EXAMINATION: XR CHEST 2 VIEWS HISTORY: E66.01 - Morbid (severe) obesity due to excess calories COMPARISON: There are no prior studies for comparison. FINDINGS: PA and lateral views of the chest are submitted. The lungs are expanded and clear. There is no pleural effusion, pneumothorax, or pulmonary vascular congestion. The heart is normal in size. The bones are intact. XR/XR chest 2V IMPRESSION: Normal examination of the chest. Electronically signed by: Colton Stout MD 07/12/2024 08:55 AM EST
[2024-07-11 12:18] LABS: MANUAL DIFF FLAG NO
--- NOTE | 2024-07-11 12:18 | ECG_ITS ---
Test Reason : MORBID OBS Blood Pressure : */* mmHG Vent. Rate : 82 BPM Atrial Rate : 82 BPM P-R Int : 146 ms QRS Dur : 90 ms QT Int : 386 ms P-R-T Axes : 9 21 12 degrees QTcB Int : 450 ms Normal sinus rhythm Normal ECG No previous ECGs available Referred By: Johnny Carvajal Electronically Signed By: LAVELLE PURCELL
[2024-07-11 12:30] LABS: Basophils Absolute Auto 0.1 X10*3/uL (0.0-0.2); Basophils Percent Auto 0.8 % (0-2); Eosinophils Absolute Auto 0.8 X10*3/uL (0.0-0.4); Eosinophils Percent Auto 8.3 % (0-4); Hematocrit 42.6 % (37.0-47.0); Hemoglobin 13.8 g/dl (12.0-16.0); Imm Gran Abs Auto 0.03 X10*3/uL (0.00-0.03); Imm Gran Pct Auto 0.3 % (0.0-0.4); Lymphocytes Percent Auto 20.7 % (20-40); Mean Corpuscular HGB Conc 32.4 g/dl (31.0-35.0); Mean Corpuscular Hemoglobin 26.2 pg (27.0-33.0); Mean Corpuscular Volume 80.8 fL (80.0-98.0); Mean Platelet Volume 10.1 fL (9.4-12.3); Monocytes Absolute Auto 0.6 X10*3/uL (0.1-1.2); Monocytes Percent Auto 5.7 % (2-11); Neutrophils Absolute Auto 6.3 x10*3/uL (2.0-8.3); Neutrophils Percent Auto 64.2 % (45-73); Platelet Count 333 X10*3/uL (160-400); Red Blood Count 5.27 X10*6/uL (4.20-5.50); Red Cell Distribution Width 13.2 % (11.0-16.0); White Blood Count 9.8 X10*3/uL (4.8-10.8)
[2024-07-11 12:50] LABS: Estimated Average Glucose 97 mg/dL; Hemoglobin A1C 110.1318 umol/L; Total Hemoglobin (HGBA1C) 3556.5369 umol/L
[2024-07-11 13:14] LABS: Alanine Aminotransferase 27 U/L (0-31); Albumin Level 4.1 g/dL (3.5-5.0); Anion Gap 11 (12-20); Aspartate Amino Transferase 19 U/L (5-31); Bilirubin Total 0.5 mg/dL (0.0-1.0); Blood Urea Nitrogen 12 mg/dL (9-16); C Reactive Protein 2.12 mg/dL (< or = 0.50); Calcium 9.5 mg/dL (8.4-10.2); Carbon Dioxide 23 mmol/L (22-29); Chloride 108 mmol/L (96-108); Cholesterol 159 mg/dL (<200); Estimated Glomerular Filt Rate > 60; Glucose Random 78 mg/dL (60-115); HDL Cholesterol 45 mg/dL (>40); Iron 103 mcg/dL (30-160); LDL Cholesterol Calculated 102 mg/dL (<100); Percent Iron Saturation 36 % (15-50); Potassium 4.2 mmol/L (3.3-5.1); Sodium 138 mmol/L (135-145); Total Iron Binding Capacity 289 mcg/dL (228-428); Total Protein 8.1 g/dL (6.5-8.0); Triglycerides 63 mg/dL (<150); Unsaturated Iron Binding 186 ug/dL
[2024-07-11 13:33] LABS: Folate 10.6 ng/mL (> or = 4.0); Vitamin B12 272 pg/mL (200-900)
[2024-07-11 13:56] LABS: Alkaline Phosphatase 102 U/L (39-117)
[2024-07-11 14:13] LABS: Ferritin 45 ng/mL (10-122); Insulin 4 uU/mL (2-29); TSH reflex Free T4 0.94 uIU/mL (0.32-4.0); Vitamin D 25-OH Total 18.3 ng/mL (>30)
[2024-07-14 01:53] LABS: Zinc 80 mcg/dL (60-130)
[2024-07-14 20:43] LABS: Vitamin A 43 mcg/dL (38-98)
[2024-07-17 14:37] LABS: Vitamin B1 6 nmol/L (8-30)
== END 2024-07-11 11:48 | disposition home or self-care (01) ==
LOC: HO.LAB 11:47
PROVIDERS: Visit Provider Surgery
DX: R79.89 Other specified abnormal findings of blood chemistry (principal); E66.01 Morbid (severe) obesity due to excess calories; Z68.42 Body mass index [BMI] 45.0-49.9, adult
CPT/HCPCS: 36415; 71046; 80053; 80061; 82306; 82607; 82728; 82746; 83036; 83525; 83540; 84425; 84443; 84590; 84630; 85025; 86140; 93005

== ENCOUNTER → 2024-07-11 12:18 | Outpatient (BNV) | payer OTHER, SELFPAY | PROVIDERS: Visit Provider Internal Medicine | DX: R79.89 Other specified abnormal findings of blood chemistry (principal); E66.01 Morbid (severe) obesity due to excess calories; Z68.42 Body mass index [BMI] 45.0-49.9, adult | CPT/HCPCS: 93010 ==

== ENCOUNTER → 2024-07-11 12:29 | Outpatient (BNV) | payer OTHER, SELFPAY | PROVIDERS: Visit Provider Radiology Diagnostic Radiology | DX: R79.89 Other specified abnormal findings of blood chemistry (principal); E66.01 Morbid (severe) obesity due to excess calories; Z68.42 Body mass index [BMI] 45.0-49.9, adult | CPT/HCPCS: 71046 ==

== ENCOUNTER 2024-07-25 13:27 | Outpatient (AMB) | payer OTHER, SELFPAY ==
--- NOTE | 2024-07-25 13:15 | A.OFFWM_ITS ---
Intake Intake Visit Reasons: VIDEO BH Intake Allergies No Known Allergies [No Known Allergies*] Allergy (Verified 07/07/24 08:46) PFSH Medical History Pelvic pain affecting Morbid obesity with BMI of 45.0-49.9, adult Surgical History No pertinent past surgical history Family History (Updated 05/05/24 @ 07:47 by Rubina Casey PA-C) Maternal Grandmother History of breast cancer Mother Diabetes mellitus Social History Housing: Apartment Alcohol intake: never Patient Tobacco Use Status: Never used Tobacco e-Cigarette/Vaping Use: Never Used Second Hand Smoke Exposure: No service: No Current occupational status: employed Cognitive needs: No Hearing needs: No Vision needs: Yes (Glasses) Behavioral Health Assessment Weight Management Therapy Therapy Notes Details PT is a 29 years old female, who presents for initial visit to complete BH assessment as part of surgical weight loss program. Presenting Concerns Referral Source [facility]-Provider, PT had initial visit with Dr Navas on 07/07/24. Reason for referral Completion of behavioral health assessment as part of process for weight-loss surgery. Precipitating Event Obesity. Initial weight 246Lbs. Living Situation Current Living Situation Rent At risk of losing current housing? No Satisfied with current living situation? Yes Comments PT lives with her and 2 children. Food/Weight/Diet Expectations of change Initial goal is to lose 10% of her weight before surgery, which is about 26lbs. Ultimate weight goal: 220lbs before surgery. PT started the program on 07/07 at 246Lbs, and her most recent weight as of 07/23 was 243Lbs. Patient goals are to be healthy for her children, being less tired and more active. PT is implementing the following: Current meal plan: Using [employer]. Using the normal plan. Doing bars and 1 meal. Exercise plan: Walking pad, 5 days a week for 400 calories. Scale: yes Communication w/ provider: yes, Mondays. History/Relationship with food Example of meals before starting the program: Breakfast: Lunch: Dinner: Snacks: Drinks/Liquids: History/Relationship with weight In the last 10 years, the patient's Lowest weight was and highest History/Relationship with dieting Self-diets eating better . Caloric deficit, lost 20 lbs. Ozempic 0.5mg May/2024, lost 6Lbs in 1 month. Stopped as her insurance stopped covering. Social History Family history and relationship PT is and they shared 1 child. PT has 2 children. Her mom is to her stepdad who raised her. She has 3 siblings, 1 older and 2 younger, who are 10 and 11. Pt reports good family relationships, they're close. Parental/Familial shank turner obligations 2 children, an 8y/o son and a 2 y/o girl. She has shared custody of oldest son with his father. Developmental history and status None. Currently WNL. Social support , mom, and dad, Maternal grandmother, sister, some friends. Community support None. Church/Spirituality None. Cultural/Ethnic information . PT was born in [place], her parents are from [place]. PT is bilingual. Legal Involvement and History Current or historical involvement with the legal system? None. Education Highest grade completed Associate degree in science. Currently enrolled in educational program? No Interested in further educational program? 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 She might go back for a bachelor's to become a brush fabrication supervisor or a restaurant operations manager. Employment Employment Status [employer] (works as Respiratory therapist. ) Wants help to find employment? No Meaningful activities Bake, lashes, planning vacations, reading, listening to music. Financial Situation Describe current financial situation Comfortable Financial assistance? Other ([employer]) Service Service? No Mental Health and Addiction Treatment Current/Past substance abuse? No Comments Alcohol: None. Cigarettes/Tobacco: None. Cannabis/Edibles: None. Current/Past addictive behavior concerns? No Psychiatric history PT denies ever been in counseling, in crisis, or inpatient for mental health. There is no history and/or current concern about SI/Sa and self-harm or other harm. Also reported never any provider has prescribed her with psych. meds. Medical and Physical Health Summary Additional Medical History not covered in history None aditional. Sexual History concerns None reported. Physical exam in the last year? Yes Pain Screening Current pain? No Pain in the last few months? No Medications Is the patient compliant with medications? Yes Does the patient have [place] Guardian in place? Not applicable Does the patient use complimentary health approaches? No Trauma/Abuse History History of trauma? No Questionnaires PHQ-9 Over the last 2 weeks, how often have you been bothered by any of the following problems? 1. Little interest or pleasure in doing things: not at all 2. Feeling down, depressed, or hopeless: not at all 3. Trouble falling or staying asleep, or sleeping too much: not at all 4. Feeling tired or having little energy: several days 5. Poor appetite or overeating: several days 6. Feeling bad about yourself - or that you are a failure or have let yourself or your family down: not at all 7. Trouble concentrating on things, such as reading the newspaper or watching television: several days 8. Moving or speaking so slowly that other people could have noticed. Or the opposite - being so fidgety or restless that you have been moving around a lot more than usual: not at all 9. Thoughts that you would be better off or of hurting yourself in some way: not at all Total score: 3 Depression Screening Interpretation: Negative (From new PT pack. ) Depression Screening Done: Yes Source: Developed by Drs. Colton Whitmore, Chula Moreira, Golden Patrick and colleagues, with an educational miguel angel from [employer]. Assessment & Plan Assessment & Plan (1) Morbid obesity with BMI of 45.0-49.9, adult: Code(s): E66.01 - Morbid (severe) obesity due to excess calories; Z68.42 - Body mass index [BMI] 45.0-49.9, adult (2) Adjustment disorder, unspecified: Code(s): F43.20 - Adjustment disorder, unspecified Plan PT will return in 1-3 weeks to continue assessment, new Phq-9 will be administered before assessment is finished and BES will be reviewed at next visit. Telehealth Telehealth Telehealth Platform: [employer] Location of provider rendering services: other (Home office, [place], [place]) Location of patient: address on file Patient Identification confirmed using: Name, : Yes Telehealth method: video Patient verbally consented to treatment: Yes Patient verbally consented to billing insurance company: Yes Patient informed of any privacy concerns related to visit: Yes Minutes spent on Phone/Video with Pt.: 50 Coding Level of Care Code New Pt Tele Psy Diag Eval (62547) Patient Type New Diagnoses Morbid obesity with BMI of 45.0-49.9, adult E66.01; Z68.42 Adjustment disorder, unspecified F43.20 Time Spent (min) 50
== END 2024-07-25 15:00 | disposition home or self-care (01) ==
LOC: HO.HBST 13:27
PROVIDERS: Visit Provider Counselor Mental Health
DX: E66.01 Morbid (severe) obesity due to excess calories (principal); Z68.42 Body mass index [BMI] 45.0-49.9, adult; F43.20 Adjustment disorder, unspecified
CPT/HCPCS: 90791

== ENCOUNTER → 2024-08-01 11:13 | Outpatient (AMB) | payer OTHER, SELFPAY ==
--- NOTE | 2024-08-01 11:05 | A.OFFWM_ITS ---
Intake Intake Visit Reasons: VIDEO BH Intake Part 2 Allergies No Known Allergies [No Known Allergies*] Allergy (Verified 07/07/24 08:46) [facility] Medical History Pelvic pain affecting Morbid obesity with BMI of 45.0-49.9, adult Surgical History No pertinent past surgical history Family History (Updated 05/05/24 @ 07:47 by Rubina Casey PA-C) Maternal Grandmother History of breast cancer Mother Diabetes mellitus Social History Housing: Apartment Alcohol intake: never Patient Tobacco Use Status: Never used Tobacco e-Cigarette/Vaping Use: Never Used Second Hand Smoke Exposure: No service: No Current occupational status: employed Cognitive needs: No Hearing needs: No Vision needs: Yes (Glasses) Behavioral Health Assessment Weight Management Therapy Therapy Notes Details The patient is a 29-year-old female presenting for an initial visit to complete a behavioral health assessment as part of her surgical weight loss program. She began the program on 07/07 at 246 lbs, with her most recent weight on 07/31/24 being 235 lbs. Her primary goals are to improve her health for the sake of her children, reduce fatigue, and become more active. The patient reports no history of mental health treatment, hospitalization, or behavioral health crises. She denies any current or past concerns related to suicidal ideation (SI), suicidal attempts (SA), self-harm, or harm to others. Additionally, there is no history of substance use. She does not report stress or emotional eating, and her BES score indicates a low risk for binge eating behaviors. Her PHQ-9 score also shows no active symptoms or concerns related to depression. The mental status examination is within normal limits, suggesting that the patient's overall functioning is not impaired. At this time, the patient is cleared from a behavioral health perspective. Presenting Concerns Referral Source WMP-Provider, PT had initial visit with Dr Navas on 07/07/24. Reason for referral Completion of behavioral health assessment as part of process for weight-loss surgery. Precipitating Event Obesity. Initial weight 246Lbs. Living Situation Current Living Situation Rent At risk of losing current housing? No Satisfied with current living situation? Yes Comments PT lives with her and 2 children. Food/Weight/Diet Expectations of change Initial goal is to lose 10% of her weight before surgery, which is about 26lbs. Ultimate weight goal: 220lbs before surgery. PT started the program on 07/07 at 246Lbs, and her most recent weight as of yesterday 07/31/24 was 235Lbs. Patient goals are to be healthy for her children, being less tired and more active. PT is implementing the following: Current meal plan: Using [employer]. Using the normal plan. Doing bars and 1 meal. Exercise plan: Walking pad, 5 days a week for 400 calories. Scale: yes Communication w/ provider: yes, Mondays. History/Relationship with food PT started a caloric deficit last year and since then she has adjusted her eating habits. However before that she has disorganized with her eating or would overeat but also skip meals. She was also used to do take-out or fast food out of convenience due to her work. After sta rting the caloric deficit she started making better decisions even when eating out. In the past she would have little or no appetite in the morning and feel very hungry in the evening, often overeating but after feeling full will not snack anymore. Example of meals before starting the program: Breakfast: Eggs Lunch: a burger w/out the bun, chicken nuggets. a salad Dinner: rice or potatoes with any type of meat and salad. Beans also. Snacks: 1 a day (chips or sweets) Drinks/Liquids: water, soda or zero-calorie juice occasionally. History/Relationship with weight PT reports she was always overweight. In HS at age 14 she was around 166Lbs When she had her 2nd baby she had been gaining consistently. In the last 10 years, the patient's Lowest weight is her current weight 235Lbs and highest was last year 275Lbs. History/Relationship with dieting Self-diets eating better . Caloric deficit, lost 20 lbs. Ozempic 0.5mg May/2024, lost 6Lbs in 1 month. Stopped as her insurance stopped covering. Binge Eating Do you frequently eat large amounts of food in short periods of time, not feeling physically hungry? No Do you feel out of control when you eat a large amount of food in a short period of time? Yes Do you eat large amounts of food rapidly and typically alone? No Night Eating Do you wake up at least once during the night to eat? No If you wake up in the night, do you find that it is necessary to eat something in order to fall back asleep? No Do you have little or no appetite in the morning and feel very hungry in the evening, often overeating between dinner and when you go to bed? No Social History Family history and relationship PT is and they shared 1 child. PT has 2 children. Her mom is to her stepdad who raised her. She has 3 siblings, 1 older and 2 younger, who are 10 and 11. Pt reports good family relationships, they're close. 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 She has shared custody of oldest son with his father. Developmental history and status None. Currently WNL. Social support , mom, and dad, Maternal grandmother, sister, some friends. Community support None. Jain/Spirituality None. Cultural/Ethnic information . PT was born in [place], her parents are from [place]. PT is bilingual. Legal Involvement and History Current or historical involvement with the legal system? None. Education Highest grade completed Associate degree in science. Currently enrolled in educational program? No Interested in further educational program? 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 She might go back for a bachelor's to become a supervisor wool shearing or a online services manager. Employment Employment Status [employer] (works as Respiratory therapist. ) Wants help to find employment? No Meaningful activities Bake, lashes, planning vacations, reading, listening to music. Financial Situation Describe current financial situation Comfortable Financial assistance? Other ([facility]) Service Service? No Mental Health and Addiction Treatment Current/Past substance abuse? No Comments Alcohol: None. Cigarettes/Tobacco: None. Cannabis/Edibles: None. Current/Past addictive behavior concerns? No Psychiatric history PT denies ever been in counseling, in crisis, or inpatient for mental health. There is no history and/or current concern about SI/Sa and self-harm or other harm. Also reported never any provider has prescribed her with psych. meds. Medical and Physical Health Summary Additional Medical History not covered in history None aditional. Sexual History concerns None reported. Physical exam in the last year? Yes Pain Screening Current pain? No Pain in the last few months? No Medications Is the patient compliant with medications? Yes Does the patient have [place] Guardian in place? Not applicable Does the patient use complimentary health approaches? No Trauma/Abuse History History of trauma? No Questionnaires PHQ-9 Over the last 2 weeks, how often have you been bothered by any of the following problems? 1. Little interest or pleasure in doing things: not at all 2. Feeling down, depressed, or hopeless: not at all 3. Trouble falling or staying asleep, or sleeping too much: not at all 4. Feeling tired or having little energy: several days 5. Poor appetite or overeating: not at all 6. Feeling bad about yourself - or that you are a failure or have let yourself or your family down: not at all 7. Trouble concentrating on things, such as reading the newspaper or watching television: several days 8. Moving or speaking so slowly that other people could have noticed. Or the opposite - being so fidgety or restless that you have been moving around a lot more than usual: several days (This last week nervous about upcoming endoscopy. ) 9. Thoughts that you would be better off or of hurting yourself in some way: not at all Total score: 3 Depression Screening Interpretation: Negative Depression Screening Done: Yes 26647 - PHQ-9 Billing: Yes Source: Developed by Drs. Colton Whitmore, Chula Moreira, Golden Patrick and colleagues, with an educational miguel angel from [employer]. Binge Eating Scale Group 1 A. I don't feel self-conscious about my wt. or body size when I'm with others. B. I feel concerned about how I look to others, but it normally does not make me fell disappointed with myself C. I do get self-conscious about my appearance and wt. which makes me feel disappointed in myself. D. I feel very self-conscious about my wt. and frequently I feel intense shame and disgust for myself. I try to avoid social contacts because of my self-consciousness. Response Group 1: C Group 2 A. I don't have any difficulty eating slowly in the proper manner. B. Although I seem to gobble down foods, I don't end up feeling stuffed because of eating to much. C. At times, I tend to eat quickly and then, I feel uncomfortably full afterward s. D. I have the habit of bolting down my food, without really chewing it. When this happens I usually feel uncomfortably stuffed because I've eaten to much. Response Group 2: C Group 3 A. I feel capable to control my eating urges when I want to. B. I feel like I have failed to control my eating more than the average person. C. I feel utterly helpless when it comes to feeling in control of my eating urges. D. Because I feel so helpless about controlling my eating I have become very desperate about trying to get control. Response Group 3: B Group 4 A. I don't have the habit of eating when I'm bored. B. I sometimes eat when I'm bored, but often I'm able to get busy and get my mind off food. C. I have a regular habit of eating when I'm bored, but occasionally, I can use some other activity to get my mind off eating. D. I have a strong habit of eating when I'm bored. Nothing seems to help me breath the habit. Response Group 4: C Group 5 A. I'm usually physically hungry when I eat something. B. Occasionally, I eat something on impulse even though I really am not hungry. C. I have the regular habit of eating foods, that I might not really enjoy, to satisfy a hungry feeling even though physically, I don't need the food. D. Although I'm not physically hungry, I get a hungry feeling in my mouth that only seems to be satisfied when I eat a food, like sandwich, that fills my mouth. Sometimes, when I eat the food to satisfy my mouth hunger, I then spit the food out so I won't gain weight. Response Group 5: B Group 6 A. I don't feel any guilt or self-hate after I overeat. B. After I overeat, occasionally I feel guilt or self-hate. C. Almost all the time I experience strong guilt or self-hate after I overeat. Response Group 6: B Group 7 A. I don't lose total control of my eating when dieting even after periods when I overeat. B. Sometimes when I eat a forbidden food on a diet, I feel like I blew it and eat even more. C. Frequently, I have the habit of saying to myself, I've blown it now, why not go all the way, when I overeat on a diet. When that happens I eat more. D. I have a regular habit of starting a strict diets for myself but I break the diets by going on an eating binge. My life seems to be either a feast or famine. Response Group 7: B Group 8 A. I rarely eat so much food that I feel uncomfortably stuffed afterwards. B. Usually about once a month, I each such a quantity of food, I end up feeling very stuffed. C. I have regular periods during the month when I eat large amounts of food, either at mealtime or at snacks. D. I eat so much food that I regularly feel quite uncomfortable after eating and sometimes a bit nauseous. Response Group 8: C Group 9 A. My level of calorie intake does not go up very high or go down very low on a regular basis. B. Sometimes after I overeat, I will try to reduce my caloric intake to almost nothing to compensate for the excess calories I've eaten. C. I have a regular habit of overeating during the night. It seems that my routine is not to be hungry in the morning but overeat in the evening. D. In my adult years, I have had week-long periods where I practically starve myself. This follows periods when I overeat. It seems I live a life of either feast or famine. Response Group 9: B Group 10 A. I usually am able to stop eating when I want to. I know when enough is enough. B. Every so often, I experience a compulsion to eat which I can't seem to contr ol. C. Frequently, I experience strong urges to eat which I seem unable to control, but at other times I can control my eating urges. D. I feel incapable of controlling urges to eat. I have a fear of not being able to stop eating voluntarily. Response Group 10: A Group 11 A. I don't have any problem stopping eating when I feel full. B. I usually can stop eating when I feel full but occasionally overeat leaving me feeling uncomfortably stuffed. C. I have a problem stopping eating once I start and usually I feel uncomfortably stuffed after I eat a meal. D. Because I have a problem not being able to stop eating when I want, I sometimes have to induce vomiting to relieve my stuffed feeling. Response Group 11: A Group 12 A. I seem to eat just as much when I'm with others, Family social gatherings as when I'm by myself. B. Sometimes, when I'm with other persons, I don't eat as much as I want to eat because I'm self-conscious about my eating. C. Frequently, I eat only a small amount of food when others are present, because I'm very embarrassed about my eating. D. I feel so ashamed about overeating that I pick times to overeat when I know no one will see me. I feel like a closet eater. Response Group 12: A Group 13 A. I eat three meals a day with only an occasional between meal snack. B. I eat 3 meals a day, but I also normally snack between meals. C. When I am snacking heavily, I get in the habit of skipping regular meals. D. There are regular periods when I seem to be continually eating, with no planned meals. Response Group 13: B Group 14 A. I don't think much about trying to control unwanted eating urges. B. At least some of the time, I feel my thoughts are pre-occupied with trying to control my eating urges. C. I feel that frequently I spend much time thinking about how much I ate or about trying not to eat anymore. D. It seems to me that most of my waking hours are pre-occupied by thoughts about eating or not eating. I feel like I'm constantly struggling not to eat. Response Group 14: B Group 15 A. I don't think about food a great deal. B. I have strong craving for food but they last only for brief periods of time. C. I have days when I can't seem to think about anything else but food. D. Most of my days seem to be pre-occupied with thoughts about food. I feel like I live to eat. Response Group 15: B Group 16 A. I usually know whether or not I'm physically hungry. I take the right portion of food to satisfy me. B. Occasionally, I feel uncertain about knowing whether or not I'm physically hungry. A these times it's hard to know how much food I should take to satisfy me. C. Even though I might know how many calories I should eat, I don't have any idea what is a normal amount of food for me. Response Group 16: B Binge Eating Score: 17 Score less than 17 Minimal Risk Score between 18-26 Moderate Risk Score between 27-46 High Risk Assessment & Plan Assessment & Plan (1) Morbid obesity with BMI of 45.0-49.9, adult: Code(s): E66.01 - Morbid (severe) obesity due to excess calories; Z68.42 - Body mass index [BMI] 45.0-49.9, adult (2) Adjustment disorder, unspecified: Code(s): F43.20 - Adjustment disorder, unspecified Plan At this time, the patient has been cleared from a behavioral health standpoint. She will be seen in 1-3 weeks post-operatively. Telehealth Telehealth Telehealth Platform: [facility] Location of provider rendering services: other ([facility], [place], [place]) Location of patient: address on file Patient Identification confirmed using: Name, : Yes Telehealth method: video Patient verbally consented to treatment: Yes Patient verbally consented to billing insurance company: Yes Patient informed of any privacy concerns related to visit: Yes Minutes spent on Phone/Video with Pt.: 60 Coding Level of Care Code Established Pt Tele Psytx >53 mins (10228) Patient Type Established Diagnoses Morbid obesity with BMI of 45.0-49.9, adult E66.01; Z68.42 Adjustment disorder, unspecified F43.20 Additional Codes PHQ-9 - 20519 - PHQ-9 Billing: Yes ([id number]) Time Spent (min) 60
== END ==
LOC: HO.HBST 11:13
PROVIDERS: Visit Provider Counselor Mental Health
DX: F43.20 Adjustment disorder, unspecified (principal); E66.01 Morbid (severe) obesity due to excess calories; Z68.42 Body mass index [BMI] 45.0-49.9, adult
CPT/HCPCS: 90837

== ENCOUNTER → 2024-08-01 11:13 | Outpatient (BNVA) | payer OTHER, SELFPAY | PROVIDERS: Visit Provider Counselor Mental Health ==

== ENCOUNTER 2024-08-03 12:31 | Day surgery (SDC) | payer OTHER, SELFPAY ==
[2024-08-01 07:19] VITALS: BMI 45.0
--- NOTE | 2024-08-02 09:15 | P.CONAN_ITS ---
Documented by User: Madhuri Motta NP 08/02/24 09:16 HPI - Anesthesia Eval Consult details Narrative: 29yo F for Upper Endoscopy PMFSH Active Problems Active Problems: All Active Problems Vitamin B1 deficiency (Acute) Vitamin B12 deficiency (Acute) Vitamin D deficiency (Acute) Elevated LFTs (Acute) Difficulty concentrating (Acute) Annual physical exam (Acute) Vaginal odor (Acute) Burning with urination (Acute) Low vitamin D level (Acute) Skin lesion (Acute) Anxiety (Acute) Eczema (Acute) Screening for hypothyroidism (Acute) Screening for hyperlipidemia (Acute) Routine screening for STI (sexually transmitted infection) (Acute) Rash (Acute) Vaginal itching (Acute) Missed ab (Acute) Encounter to discuss test results (Acute) Pelvic pain affecting (Acute) Threatened in early (Acute) Morbid obesity with BMI of 45.0-49.9, adult (Acute) Past Medical History Medical History Pelvic pain affecting Morbid obesity with BMI of 45.0-49.9, adult Family History Family History Maternal Grandmother History of breast cancer Mother Diabetes mellitus Surgical History Surgical History No pertinent past surgical history Social History Social History Housing: Apartment Are you a primary human services care specialist to a significant other at home: No Do you presently have visiting nurse or other home services: No Alcohol intake: never Patient Tobacco Use Status: Never used Tobacco e-Cigarette/Vaping Use: Never Used Second Hand Smoke Exposure: No Use of substances other than those prescribed or required for medical reasons: No Have you been hit, kicked, punched, or otherwise hurt by someone within the past year? If so, by whom?: No Are you DNR?: No Advance Directives: No Advance Directives Information Provided: Yes Recently lost weight without trying: No Patient : No FDLMP: 08/03/2024 service: No Current occupational status: employed Cognitive needs: No Hearing needs: No Vision needs: Yes (Glasses) Meds Allergies Allergy/AdvReac Type Severity Reaction Status Date / Time No Known Allergies Allergy Verified 08/03/24 12:42 [No Known Allergies*] Home Medications ?Medication ?Instructions ?Recorded ?Confirmed ?Last Taken ?Type norgestimate 0.25 mg-ethinyl 1 tab PO DAILY 04/28/24 08/03/24 08/02/24 History estradiol 35 mcg tablet Exam Height,Weight and Vital Signs: Height 5 ft 2 in Weight 111.584 kg Assessment and Plan Assessment Anesthesia Assessment: Chart Reviewed Documented by User: Светлана Becerra MD 08/03/24 13:55 PMFSH Past Medical History Medical History Pelvic pain affecting Morbid obesity with BMI of 45.0-49.9, adult Family History Family History Maternal Grandmother History of breast cancer Mother Diabetes mellitus Family history of problems with anesthesia: No Surgical History Surgical History No pertinent past surgical history History of Problems with Anesthesia: No Social History Social History Housing: Apartment Are you a primary human services care specialist to a significant other at home: No Do you presently have visiting nurse or other home services: No Alcohol intake: never Patient Tobacco Use Status: Never used Tobacco e-Cigarette/Vaping Use: Never Used Second Hand Smoke Exposure: No Use of substances other than those prescribed or required for medical reasons: No Have you been hit, kicked, punched, or otherwise hurt by someone within the past year? If so, by whom?: No Are you DNR?: No Advance Directives: No Advance Directives Information Provided: Yes Recently lost weight without trying: No Patient : No FDLMP: 08/03/2024 service: No Current occupational status: employed Cognitive needs: No Hearing needs: No Vision needs: Yes (Glasses) Meds Allergies Allergy/AdvReac Type Severity Reaction Status Date / Time No Known Allergies Allergy Verified 08/03/24 12:42 [No Known Allergies*] Home Medications ?Medication ?Instructions ?Recorded ?Confirmed ?Last Taken ?Type norgestimate 0.25 mg-ethinyl 1 tab PO DAILY 04/28/24 08/03/24 08/02/24 History estradiol 35 mcg tablet Exam Airway Mallampati Class: II TM Dist: >3cm Neck ROM: Full Heart: rrr Lungs: cta Assessment and Plan Assessment Anesthesia Assessment: Anesthesia Plan Discussed Final Anesthetic Review Family History of Problems with Anesthesia: No History of Problems with Anesthesia: No NPO: Yes ASA Class: II Final Preanesthetic Review: No Changes in Pt Med Stat, Meds/Allgs Chart Reviewed, Consent Obtained/Reviewed and Anes Risks/Benef Reviewed Patient Risk: Intermediate Procedure Risk: Low Anesthetic Plan Anesthetic Plan: MAC: Disposition: Standard PACU
[2024-08-03 12:57] VITALS: BP 136/69; PULSE 88; RESP 14; TEMP 36.7; O2SAT 98; BMI 43.0
[2024-08-03] MEDS: Lactated Ringers 1,000 ML 80 ML IVCONT (13:13)
[2024-08-03 13:26] LABS: UPreg QC Valid YES; Urine Pregnancy NEGATIVE (NEGATIVE)
--- NOTE | 2024-08-03 13:56 | MHC.SHP ---
Pre-Procedural Eval Section A - 24 Hr Update-Section A only Date of Service: 08/03/24 The patient is an INPATIENT: No The patient has been examined within 24 hours of the surgical procedure. The History & Physical has been completed within 30 days and I have reviewed it.: Yes Section B - Complete if H&P > 30 days Chief Complaint: Morbid (severe) obesity due to excess calories Relevant Family History (Specify if Yes): No Relevant Social History: None Present Medications: None Medical History: No relevant PMH History of Previous Operations: No relevant previous surgery Allergies: Allergies Allergy/AdvReac Type Severity Reaction Status Date / Time No Known Allergies Allergy Verified 08/03/24 12:42 [No Known Allergies*] Review of Systems Sugical H&P ROS: Negative: Constitution, Cardiovascular, Respiratory, Neurological, Psychiatric, Hem-Onc, Allergic/Immunologic, Gastrointestinal, Genitourinary, Musculoskeletal, Integumentary, Endocrine and Eyes/Ears/Nose/Throat Exam Surgical H&P Exam: Normal: HEENT, Normal: Heart, Normal: Lungs, Normal: Extremities, Normal: Abdomen, Normal: Skin and Normal: Neurological Plan Diagnosis/Plan: Unchanged (EGD to assess the stomach's anatomy. Risks of bleeding and perforation were discussed with the patient and she is in agreement with the plan.) I have reviewed the history and physical and performed a pertinent physical examination on my patient. No changes have occurred unless specified. Time Spent With Patient Time: Total time managing care of this patient today ____ minutes.
--- NOTE | 2024-08-03 14:07 | PM.OP ---
Brief Operative Note Date of Service: 08/03/24 Pre-op diagnosis: Morbid obesity Post-op diagnosis: same Procedure: PROCEDURE DATE: 08/03/2024 PREOPERATIVE DIAGNOSIS: Morbid obesity POSTOPERATIVE DIAGNOSIS: ?Same as above. 1) Normal endoscopy PROCEDURE: [id number] with biopsies Surgeon: Rosaline Carvajal M.D.. Ph.D. Pumper Gauger Apprentice: None ? Anesthesia: IV sedation Estimated blood loss: ?Minimal FINDINGS AND PROCEDURE: ? OPERATIVE INDICATIONS: ?The patient is a 29 year old female known to me who is interested in bariatric surgery. Based on this information I recommended an upper endoscopy to evaluate the stomach's anatomy. Risks and complications of the surgery were discussed with the patient in advance particularly the possibility of perforation or bleeding that may require surgical intervention. The patient understood the risks and was in agreement with the plan. ? PROCEDURE: After informed consent was obtained by the patient, the patient was ?transferred to the Operating Room and was placed in the supine position.? After successful induction of IV sedation, a mouth block was inserted and the patient was placed in the left lateral decubitus position. An upper endoscopy was performed next, the oropharynx and esophagus appeared within the normal limits. There was no hiatal hernia. The z-line was smooth. Two biopsies were obtained from the distal esophagus 2-3 cm proximal to the GE junction and two additional biopsies from the GE junction. The stomach was entered and it appeared to be of normal size. There was no gastritis. There was no stricture or ulcer. A biopsy was obtained from the gastric fundus and the antrum. No significant bleeding was noted from any of the biopsy sites. Retroflexion of the scope confirmed a normal GE junction. The scope was then advanced into the duodenum which appeared to be normal as well. At that point the duodenum ?and the stomach were decompressed and the scope was withdrawn from the patient's mouth. The patient extubated and was transferred in stable condition to the Recovery Room for further care. I was present and performed all steps of the procedure. There were no residents to assist with this case. Chase Carvajal M.D., Ph.D. Surgeon: Johnny Carvajal MD Anesthesia: MAC Was an Pumper Gauger Apprentice used for this Procedure?: No Estimated blood loss (mL): 0 IV fluids (mL): 400 Urine output (mL): 0 (No Ceja to record output) Pathology: other (1) antrum x1, 2) fundus x1, 3) GE junction x2, 4) distal esophagus x2) Condition: stable Disposition: PACU
[2024-08-03 15:26] VITALS: BP 105/72; PULSE 120; RESP 16; TEMP 36.7; O2SAT 97
[2024-08-03 15:41] VITALS: BP 121/82; PULSE 95; RESP 16; TEMP 36.9; O2SAT 97
== END 2024-08-03 16:15 | disposition home or self-care (01) ==
PROVIDERS: Nurse Practitioner; Visit Provider Surgery
PROC: 0DJ08ZZ Inspection of Upper Intestinal Tract, Via Natural or Artificial Opening Endoscopic (ICD-10-PCS; CPT 43235; principal; 2024-08-03 15:10)
DX: R10.2 Pelvic and perineal pain (principal); E66.01 Morbid (severe) obesity due to excess calories; Z68.42 Body mass index [BMI] 45.0-49.9, adult; Z79.899 Other long term (current) drug therapy
CPT/HCPCS: 43239; 81025; 88305; 88313; 88342; J1100; J1596; J2003; J2250; J2704

== ENCOUNTER → 2024-08-03 12:31 | Outpatient (BNV) | payer OTHER, SELFPAY | PROVIDERS: Visit Provider Surgery | DX: E66.813 Obesity, class 3 (principal); Z68.42 Body mass index [BMI] 45.0-49.9, adult | CPT/HCPCS: 43239 ==

== ENCOUNTER 2024-08-07 09:17 | Outpatient (REF) | payer OTHER, SELFPAY ==
--- NOTE | ~2024-08-07 | US_ITS ---
EXAMINATION: US ABDOMEN COMPLETE WITH LIVER ELASTOGRAPHY HISTORY: E66.01 - Morbid (severe) obesity due to excess calories TECHNIQUE: Real-time grayscale ultrasound imaging of the abdomen was performed and images were reviewed. COMPARISON: There are no prior studies for comparison. FINDINGS: Liver: The right lobe of the liver measures 15.4 cm in size. The left lobe of the liver measures 7.2 cm in size. The liver demonstrates normal homogeneous echotexture. There is a wedge-shaped echogenic focus in the left lobe measuring 1.6 x 1.2 x 1.6 cm. This may represent focal fatty infiltration or hemangioma. No intrahepatic biliary ductal dilatation is identified. There is normal hepatopedal flow in the portal vein. Ultrasound elastography of the liver was performed with 10 separate measurements of the liver parenchyma with the patient in the supine position. Measurements were obtained approximately 2 cm below Jair's capsule and perpendicular to the capsule. Images are of satisfactory quality. The median shear wave velocity is 1.28 m/s. The interquartile range/median (IQR/median) is 0.13. Gallbladder and biliary tree: The gallbladder is unremarkable, without evidence of calculi, wall thickening, or pericholecystic fluid. There is no sonographic Nguyễn sign. The common bile duct is normal in caliber measuring 2 mm. Kidneys: The right kidney measures 11.4 cm in length. The left kidney measures 9.7 cm in length. The kidneys are unremarkable, without evidence of masses, hydronephrosis, or calculi. Pancreas: The pancreatic head, neck, and body are unremarkable. The pancreatic tail is obscured by bowel gas. Spleen: The spleen is normal in size and contour, measuring 10.5 cm in length. Abdominal aorta and inferior vena cava: The visualized portions of the abdominal aorta and inferior vena cava are normal in caliber. There is no free fluid in the abdomen. US/US abdomen comp w elastography IMPRESSION: 1.6 x 1.2 x 1.6 cm wedge-shaped echogenic focus in the left lobe of the liver which could represent focal fatty infiltration or a hemangioma. This could be further evaluated with MRI. The median shear wave velocity in the liver is 1.28 m/s, corresponding to a median liver stiffness of 5.13 kPa. The IQR/median value is 0.13. This is indicative of a quality data set. Findings are indicative of a normal elastography value with a low likelihood of severe fibrosis or cirrhosis. REFERENCE: Society of Radiologists in Ultrasound Liver Stiffness Thresholds (2020): LIVER STIFFNESS THRESHOLDS: *Shear wave velocity less than 1.3 m/s (Liver Stiffness equal or less than 5 kPa): High probability of being normal. *Shear wave velocity less than 1.7 m/s (Liver Stiffness less than 9 kPa): In the absence of other known clinical signs, rules out compensated advanced chronic liver disease. *Shear wave velocity between 1.7-2.1 m/s (Liver Stiffness 9-13 kPa): Suggestive of compensated advanced chronic liver disease but need further test for confirmation. *Shear wave velocity between 2.1-2.4 m/s (Liver Stiffness 13-17 kPa): Rules in compensated advanced chronic liver disease. *Shear wave velocity greater than 2.4 m/s (Liver Stiffness over 17 kPa): Suggestive of clinically significant portal hypertension. QUALITY OF DATA SET: *IQR/Median value equal or less than 0.15 implies a quality data set. *IQR/Median value over 0.15 implies a poor quality data set. SIGNIFICANT CHANGE FROM PRIOR EXAM: Significant change if liver stiffness measurement is 10% or greater from prior exam. OTHER CONSIDERATIONS: The stage of liver fibrosis may be overestimated in the setting of acute hepatitis, liver inflammation, elevated liver function tests, hepatic vascular congestion, obstructive cholestasis, non-fasting state, and infiltrative diseases such as amyloidosis and lymphoma. In some patients with NAFLD, the liver stiffness thresholds for compensated advanced chronic liver disease may be lower. In causes other than viral hepatitis and NAFLD, liver stiffness thresholds are not well established. Electronically signed by: Colton Stout MD 08/07/2024 10:38 AM EDT
== END 2024-08-07 09:18 | disposition home or self-care (01) ==
LOC: HO.US 09:17
PROVIDERS: Visit Provider Surgery
DX: E66.01 Morbid (severe) obesity due to excess calories (principal); Z68.42 Body mass index [BMI] 45.0-49.9, adult
CPT/HCPCS: 76700; 76981

== ENCOUNTER → 2024-08-07 09:19 | Outpatient (BNV) | payer OTHER, SELFPAY | PROVIDERS: Visit Provider Radiology Diagnostic Radiology | DX: R74.01 Elevation of levels of liver transaminase levels (principal); E66.01 Morbid (severe) obesity due to excess calories; Z68.42 Body mass index [BMI] 45.0-49.9, adult | CPT/HCPCS: 76700; 76981 ==

== ENCOUNTER 2024-08-14 10:24 | Outpatient (AMB) | payer OTHER, SELFPAY ==
--- NOTE | 2024-08-14 10:30 | MHC.OFFVISPS ---
Intake Intake Visit Reasons: consultation Allergies No Known Allergies [No Known Allergies*] Allergy (Verified 08/03/24 12:42) Medication List - Last Reconciled 08/14/24 by Rosmearie Gomez APRN cholecalciferol (vitamin D3) 125 mcg PO DAILY mecobalamin (vitamin B12) 1,000 mcg sublingual DAILY norgestimate-ethinyl estradiol 0.25-35 mg-mcg 1 tab PO DAILY thiamine HCl (vitamin B1) 100 mg PO DAILY triamcinolone acetonide 0.1% 1 appl topical DAILY 14 days HPI- Psychiatric Chief Complaint: consultation HPI Narrative: pt 29 yo woman with 2 children referred by PCP for evaluation of attention and concentration difficulties.. Pt denies depression or significant anxiety. Her PHQ9= 3 and her GAD7= 3 . She reports a longstanding problem with attention since childhood; she would frequently daydream in school as a young child. She would be criticized by adults for not listening. She had average grades in elementary school but struggle din middle mijhool and high school. Her grades went down in high school. She tried to go to community college and started at [employer] but took a break due to challenges with attention and focus. 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 She reports inattention effects her socially and at home and work. she often will interupt others, she vcan be verbally impulsive. She struggles at times with getting her work documentation completed. Her y8 yo son was recently diagnosed with ADHD and Autism. When he was having the evaluation done she realized that she had some of he same traits/behaviors. She completed the Adult ADHD self report scale in session today and scored 18. (a score above 13 strongly indicates ADHD) She had more inattention traits than impulsive although she was positive for talking too much, interrupting others, and finishing others sentences. Past Psychiatric History: none Mental Status Exam Mental Status Exam Patient Appearance: Well Grooomed and Appropriate Patient Orientation: Person, Place, Time and Situation Level of Consciousness: Awake, Appropriate and Alert Patient Behavior: Appropriate, Cooperative and Poor Eye Contact (less eye contact ) Mood Description: Calm and Appropriate Affect Description: Calm, Appropriate and Blunted Patient Cognition Impaired: No Ability to Follow Directions: Good Speech Pattern: Clear and Coherent Memory Description: Intact Hallucinations: None Delusions: Not Present Thought Process: Intact and Distracted Thought Content: positive for Intact and positive for Loose Associations Judgement: Good Assessment and Plan Assessment & Plan (1) ADHD, predominantly inattentive type: Status: Acute Code(s): F90.0 - Attention-deficit hyperactivity disorder, predominantly inattentive type Plan start trial of ritalin 10mg BID and may increas to 15mg BID if no adverse effects. plan is to switch to long acting if pt tolerates and its helpful. Medications: New methylphenidate HCl (Ritalin) Partial Fill upon patient request. 10 mg PO BID 60 tabs 0RF Counseling and coordination of Care Pt. Self Management counseling: Exercise, Maintenance-social rhythm, Mod caffeine/ETOH intake, Nutrition education and improvement, Sleep hygiene, Behavior activation and General coping skills Medication management counseling: Effectiveness, Side effects, Dosing range, Duration, Drug interaction and Adherence Diagnosis and Prognosis Counseling: Accuracy of diagnosis, Prognosis over time, Impact of diagnosis on life functions, Impact of family relationship, Problematic behaviors secondary to diagnosis and Adequacy of current interventions Details: I spent 70 minutes reviewing the record, seeing the patient and documenting in the medical record. Counseling provided to the patient/caregiver as outlined below. Addressed patient/caregiver concerns regarding current medication regime including effective adherence. Addressed patient/caregiver concerns regarding diagnosis and prognosis including accuracy of diagnosis, prognosis over time, impact of diagnosis. Addressed patient/caregiver concerns regarding impact of recent stressors. [facility] Medical History Pelvic pain affecting Morbid obesity with BMI of 45.0-49.9, adult Surgical History No pertinent past surgical history Family History Maternal Grandmother History of breast cancer Mother Diabetes mellitus Social History Housing: Apartment Are you a primary health care facility administrator to a significant other at home: No Do you presently have visiting nurse or other home services: No Alcohol intake: never Patient Tobacco Use Status: Never used Tobacco e-Cigarette/Vaping Use: Never Used Second Hand Smoke Exposure: No service: No Current occupational status: employed Cognitive needs: No Hearing needs: No Vision needs: Yes (Glasses) Social History: with 2 children age 8 and 2. works FT as respiratory therapist. Substance History: none Trauma History: none Coding Level of Care Code Psych Diag Eval w/Med (21625) Diagnoses ADHD, predominantly inattentive type F90.0
== END 2024-08-14 11:22 | disposition home or self-care (01) ==
LOC: HO.HOP 10:24
PROVIDERS: Visit Provider Clinical Nurse Specialist Psychiatric/Mental Health
DX: F90.0 Attention-deficit hyperactivity disorder, predominantly inattentive type (principal)
CPT/HCPCS: 90792

== ENCOUNTER → 2024-08-14 10:24 | Outpatient (BNVA) | payer OTHER, SELFPAY | PROVIDERS: Visit Provider Clinical Nurse Specialist Psychiatric/Mental Health | DX: F90.0 Attention-deficit hyperactivity disorder, predominantly inattentive type (principal) | CPT/HCPCS: 90792 ==

== ENCOUNTER 2024-09-22 08:13 | Outpatient (AMB) | payer OTHER, SELFPAY ==
[2024-09-21 23:34] VITALS: BMI 40.8
--- NOTE | 2024-09-21 23:34 | A.OFFVIS_ITS ---
VS Expanded 09/21/24 23:34 Height 5 ft 2 in Weight 223 lb 4 oz BMI 40.8 Body Fat % 57 Body Fat Mass 127.3 Fat Free Mass 96.4 Visceral Fat Rating 25 Body Water % 29.6 Body Water Mass 66.1 Basal Metabolic Rate/Score 1,313 Intake Visit Reasons: TV Pre Op LSG 10/03/24 Allergies No Known Allergies [No Known Allergies*] Allergy (Verified 09/21/24 23:35) Medication List - Last Reconciled 09/21/24 by Johnny Carvajal MD cholecalciferol (vitamin D3) 125 mcg PO DAILY mecobalamin (vitamin B12) 1,000 mcg sublingual DAILY methylphenidate HCl (Ritalin) 10 mg PO BID norgestimate-ethinyl estradiol 0.25-0.035 mg 1 tab PO DAILY ondansetron 4 mg PO Q12H pantoprazole 40 mg PO DAILY polyethylene glycol 3350 17 grams PO DAILY sucralfate 10 mL PO BID thiamine HCl (vitamin B1) 100 mg PO DAILY triamcinolone acetonide 0.1% 1 appl topical DAILY PRN HPI HPI TV Pre Op LSG 10/03/24: Details: Start time: 3.30pm, End time: 4pm I spent 25 minutes speaking with the patient on the phone plus an additional 5 minutes reviewing and updating records for a total of 30 minutes HPI Comments Details: Overall weight loss: 22.6lbs, or 9.2% TBWL Here for her preop appointment for sleeve gastrectomy [facility] Medical History (Updated 09/18/24 @ 12:16 by Merary Lee, RN) ADHD Cholestasis during Pelvic pain affecting Morbid obesity with BMI of 45.0-49.9, adult Surgical History (Updated 09/18/24 @ 12:07 by Merary Lee, RN) History of esophagogastroduodenoscopy (EGD) No pertinent past surgical history Family History Maternal Grandmother History of breast cancer Mother Diabetes mellitus Social History Housing: Apartment Are you a primary acute care assistant to a significant other at home: No Do you presently have visiting nurse or other home services: No Alcohol intake: never Patient Tobacco Use Status: Never used Tobacco e-Cigarette/Vaping Use: Never Used Second Hand Smoke Exposure: No service: No Current occupational status: employed Cognitive needs: No Hearing needs: No Vision needs: Yes (Glasses) Physical Exam Vital Signs: BMI result Body Mass Index 40.8 Telehealth Telehealth Telehealth Platform: Telephone Location of provider rendering services: practice address Location of patient: address on file Patient Identification confirmed using: Name, : Yes Telehealth method: voice only Patient verbally consented to treatment: Yes Patient verbally consented to billing insurance company: Yes Patient informed of any privacy concerns related to visit: Yes Minutes spent on Phone/Video with Pt.: 30 Assessment & Plan Assessment & Plan (1) Morbid obesity with BMI of 45.0-49.9, adult: Code(s): E66.01 - Morbid (severe) obesity due to excess calories; Z68.42 - Body mass index [BMI] 45.0-49.9, adult Category: Medical Plan: 1. Plan for lap sleeve gastrectomy including upper GI endoscopy. All tests has been completed and reviewed and the patient is cleared for the surgery. If diaphragmatic or ventral hernias are present at time of surgery, these will be repaired laparoscopically as well. The surgery does not replace the need to quinonez ge your lifestlyle which is the cause of the obesity problem. The surgery provides the motivation to try again to change your lifestyle, it reduces the appetite and make the transition to a better lifestyle easier and doubles the amount of weight you would lose compared to doing the lifestyle change without the surgery. You will need to be on a liquid diet with protein shakes for 2 weeks before surgery to maximize weight loss and boost your nutritional status to recover better from surgery and also for the first two weeks after surgery to let the stomach heal before we introduce other foods. After the first 2 weeks we will introduce protein bars and soft foods like scrambled eggs, cottage cheese and yogurt and after the 6th week will introduce meat, fish and cooked vegetables in small amounts. Over time you should be able to eat everything in small amounts. Side effects like nausea, vomiting, heartburn or abdominal pain are not common in the practice unless you are not following in the practice. This operation requires lifetime commitment to following in our practice and communication with me. You will much less weight and experience side effects if you don?t communicate or not following in the practice. Complications are rare and in our practice is about 1/10 of the national average. However, you can develop bleeding that may require transfusion (hasn?t happened for year in the practice), you may from complications (we did not have any deaths in the practice) and infections. Infections are usually a result of breakdown in communication or not understanding or following directions correctly. They are difficult to treat, they can happen during the first 6 weeks, they may require to be in the hospital for weeks or even months, not being able to eat by mouth and you may have drains and surgeries to try and correct the issue. Other risks and complications include possible conversion to an open procedure, leaks, small bowel obstruction, blood clots, cardiac, or pulmonary complications, as assisted complications such as ulcers, insufficient weight loss and vitamin deficiencies. So far she has proven to be an excellent communicator and very compliant with all our directions accomplishing a great weight loss. I believe that she is an excellent candidate and she is ready. 2. Preop prescriptions were provided and explained the purpose of each one. Need to be purchased preop. Start Pantoprazole now as you get it from the pharmacy, 1 pill per day. Sucralfate and Zofran are for after surgery as needed. 3. Bowel prep: please do 7 packets of Miralax mixing each one with a an 8oz glass of water, crystal light, gatorade zero, or propel on 10/01/24 and the same amount on 10/02/24. The Miralax you begin with one packet at a time in 8oz water or crystal light, gatorade zero, or propel as early in the day as you can and you do them back to back until you finish them. Continue the protein shakes during the bowel prep. 4. Needs to purchase 1oz medicine cups . 5. Needs to purchase Children's liquid Tylenol for postop pain control. 6. Avoid aspirin, motrin, Advil, Aleve, Ibuprofen, Naproxyn. Tylenol is OK. 7. She needs to purchase the Celebrate multivitamins from the hospital's gift shop. 8. Will do basic preop blood work-up any day between Wednesday09/25/24 and Wednesday09/29/24 fasting for 12 hours and is scheduled to see the Anesthesiologist prior to the day of surgery. 9. Importance of adherence to postop folllow-up and recommendations was underscored and she understands that. 10. Stop food and bars as of Wednesday09/23/24 and continue with 3 Celebrate REBUILD protein shakes (ONE scoop EACH in 8oz almond milk) at 8am-10am, 11am-1pm and at 2pm-4pm and TWO more Celebrate REBUILD protein shakes with TWO scoops in 8oz of almond milk at 5pm-7pm and at 8pm-10pm 11. No soups, broths or V8 12. The patient's medical history has been reviewed and they are considered low risk for post op DVT and therefore DVT prophylaxis is not considered necessary. Travel after surgery was reviewed. The patient has not disclosed any travel plans during the first 30 days after surgery and they have been advised that within the first 30 days after surgery any bus, plane, train or car travel over 2 hours in duration is contraindicated due to the possibility of developing blood clots from immobility. Any travel, needs to include periods of ambulation of 10 minutes in duration every 2 hours. Patient was instructed to discuss any plans for travel during this period with their bariatric surgeon. 13. Please take at the day of surgery the following medications: NONE 14. Stop any control pills and don't use them for one month after surgery 15. Absolutely no smoking or vaping, or marijuana until the surgery and for at least the first 4 weeks. Only nicotine patches are allowed. 16. Send me weight measurements on Wednesday09/25/24 and then on Wednesday10/03/24, the day of surgery before you go to the hospital. 17. Avoid any steroids by mouth for any reason. Let me know if someone prescribes them to you 18. These instructions supersede anything else you read in the handbook, anything you watched in videos or classes or you were told by any other prov ider. If there is any conflict, you follow the above instructions and nothing else. Orders: Orders Prothrombin Time INR 09/21/24 E66.01 - Morbid (severe) obesity due to excess calories, Z68.42 - Body mass index [BMI] 45.0-49.9, adult Type and Screen 09/21/24 E66.01 - Morbid (severe) obesity due to excess calories, Z68.42 - Body mass index [BMI] 45.0-49.9, adult Hemoglobin A1c 09/21/24. - Morbid (severe) obesity due to excess c alories, Z68.42 - Body mass index [BMI] 45.0-49.9, adult Complete Blood Count Auto Diff 09/21/24 - Morbid (severe) obesity due to excess calories, Z68.42 - Body mass index [BMI] 45.0-49.9, adult Insulin 09/21/24 - Morbid (severe) obesity due to excess calories, Z68.42 - Body mass index [BMI] 45.0-49.9, adult TSH reflex Free T4 09/21/24 - Morbid (severe) obesity due to excess calories, Z68.42 - Body mass index [BMI] 45.0-49.9, adult Partial Thromboplastin Time 09/21/24 - Morbid (severe) obesity due to excess calories, Z68.42 - Body mass index [BMI] 45.0-49.9, adult C Reactive Protein 09/21/24. - Morbid (severe) obesity due to excess calories, Z68.42 - Body mass index [BMI] 45.0-49.9, adult Lipid Panel 09/21/24 - Morbid (severe) obesity due to excess calories, Z68.42 - Body mass index [BMI] 45.0-49.9, adult Comprehensive Met. Panel 09/21/24. - Morbid (severe) obesity due to excess calories, Z68.42 - Body mass index [BMI] 45.0-49.9, adult Medications: New pantoprazole 40 mg PO DAILY 90 tabs 0RF K21.9 - Gastro-esophageal reflux disease without esophagitis sucralfate 10 mL PO BID 600 mL 2RF K21.9 - Gastro-esophageal reflux disease without esophagitis ondansetron Only take one every 12 hours as needed if you have nausea 4 mg PO Q12H 20 tabs 0RF nausea and vomiting R11.0 - Nausea polyethylene glycol 3350 Mix each measuring cup with 8oz of water, Crystal light, or Gatorade zero, or Propel and do 7 measuring cups on 10/01/24 and another 7 measuring cups on 10/02/24 17 grams PO DAILY 238 grams 0RF Z01.818 - Encounter for other preprocedural examination
== END 2024-09-22 19:11 | disposition home or self-care (01) ==
LOC: HO.HBS 08:13
PROVIDERS: Visit Provider Surgery
DX: E66.01 Morbid (severe) obesity due to excess calories (principal); Z68.42 Body mass index [BMI] 45.0-49.9, adult
CPT/HCPCS: 99214

== ENCOUNTER → 2024-09-22 08:13 | Outpatient (BNVA) | payer OTHER, SELFPAY | PROVIDERS: Visit Provider Surgery | DX: E66.01 Morbid (severe) obesity due to excess calories (principal); Z68.42 Body mass index [BMI] 45.0-49.9, adult; K21.9 Gastro-esophageal reflux disease without esophagitis; R11.0 Nausea; Z01.818 Encounter for other preprocedural examination ==

== ENCOUNTER 2024-09-27 08:12 | Outpatient (REF) | payer OTHER, SELFPAY ==
--- NOTE | ~2024-09-27 | FL_ITS ---
EXAMINATION: XR FLUOROSCOPY UPPER GI SERIES CLINICAL INFORMATION: Preop, bariatric surgery. Patient has no complaints. COMPARISON: None TECHNIQUE: Fluoroscopic air contrast upper GI examination was performed utilizing standard techniques with thin and thick barium and effervescent granules. Numerous spot images were obtained. Several fluoroscopic image hold cine sequences were also obtained. FINDINGS: UPPER GI SERIES: Lateral cine images of the oropharynx and hypopharynx demonstrate normal swallow mechanism with normal epiglottic inversion and soft palate elevation. No laryngeal penetration, glottic or subglottic aspiration identified. No nasopharyngeal reflux present. Hypopharyngeal structures appear normal without evidence of mass or diverticulum. There was no significant cricopharyngeal achalasia. Dual and single contrast images of the esophagus demonstrate normal caliber, contour, and mucosal pattern. No evidence of stricture, mass, or ulcerations identified. Esophageal peristalsis was normal. No evidence of hiatus hernia identified. No significant gastroesophageal reflux was seen during the course of the examination and on reflux views. Dual contrast and single contrast images of the stomach demonstrated normal contour and mucosal pattern without evidence of mass, ulceration, or other abnormality. Contrast did pass into the duodenal bulb with a mild delay. This is felt to represent the small volume of contrast ingested as opposed to a functional abnormality. Single and air-contrast images of the duodenal bulb demonstrate no abnormality. The duodenal sweep has a normal appearance, course, and mucosal fold appearance. FLUOROSCOPY TIME: 2 minutes, 18 seconds Number of Spot Images:9 Number of cines obtained: 8 DOSE AREA PRODUCT: 2758 uGy-m2 (microgray-meter squared) FL/FL upper GI w air IMPRESSION: Normal upper GI examination. Electronically signed by: Lenin Fernández MD 09/27/2024 09:13 AM EDT
== END 2024-09-27 08:13 | disposition home or self-care (01) ==
LOC: HO.XRAY 08:12
PROVIDERS: Visit Provider Surgery
DX: E66.01 Morbid (severe) obesity due to excess calories (principal); Z68.42 Body mass index [BMI] 45.0-49.9, adult
CPT/HCPCS: 74246

== ENCOUNTER → 2024-09-27 08:13 | Outpatient (BNV) | payer OTHER, SELFPAY | PROVIDERS: Visit Provider Radiology Diagnostic Radiology | DX: Z01.818 Encounter for other preprocedural examination (principal) | CPT/HCPCS: 74246 ==

== ENCOUNTER 2024-10-03 06:08 | Inpatient (IN) | payer OTHER, SELFPAY ==
[2024-09-18 12:26] VITALS: BMI 42.1
[2024-09-27 09:16] LABS: MANUAL DIFF FLAG NO
[2024-09-27 10:22] LABS: Basophils Percent Auto 0.5 % (0-2); Eosinophils Absolute Auto 0.4 X10*3/uL (0.0-0.4); Eosinophils Percent Auto 5.2 % (0-4); Hematocrit 41.7 % (37.0-47.0); Hemoglobin 14.1 g/dl (12.0-16.0); Imm Gran Abs Auto 0.03 X10*3/uL (0.00-0.03); Imm Gran Pct Auto 0.4 % (0.0-0.4); Lymphocytes Absolute Auto 1.2 X10*3/uL (1.2-4.9); Lymphocytes Percent Auto 15.8 % (20-40); Mean Corpuscular HGB Conc 33.8 g/dl (31.0-35.0); Mean Corpuscular Hemoglobin 27.2 pg (27.0-33.0); Mean Corpuscular Volume 80.3 fL (80.0-98.0); Monocytes Absolute Auto 0.5 X10*3/uL (0.1-1.2); Monocytes Percent Auto 6.4 % (2-11); Neutrophils Absolute Auto 5.3 x10*3/uL (2.0-8.3); Neutrophils Percent Auto 71.7 % (45-73); Platelet Count 323 X10*3/uL (160-400); Red Blood Count 5.19 X10*6/uL (4.20-5.50); White Blood Count 7.4 X10*3/uL (4.8-10.8)
[2024-09-27 10:23] LABS: INTERNATIONAL NORM RATIO 1.2 (0.9-1.1); Prothrombin Time 13.6 SEC (10.9-12.4)
[2024-09-27 10:26] LABS: Estimated Average Glucose 94 mg/dL; Hemoglobin A1C 107.8637 umol/L; Hemoglobin A1c % 4.9 % (<6.0); Partial Thromboplastin Time 38.4 SEC (26.0-36.8); Total Hemoglobin (HGBA1C) 3646.8148 umol/L
[2024-09-27 11:17] LABS: Alanine Aminotransferase 15 U/L (0-31); Albumin Level 4.2 g/dL (3.5-5.0); Alkaline Phosphatase 91 U/L (39-117); Anion Gap 18 (12-20); Aspartate Amino Transferase 19 U/L (5-31); Bilirubin Total 0.4 mg/dL (0.0-1.0); Blood Urea Nitrogen 15 mg/dL (9-16); C Reactive Protein 2.42 mg/dL (< or = 0.50); Calcium 9.3 mg/dL (8.4-10.2); Carbon Dioxide 21 mmol/L (22-29); Chloride 105 mmol/L (96-108); Cholesterol 164 mg/dL (<200); Creatinine Clr Calc Pharmacy 130.1; Estimated Glomerular Filt Rate > 60; Glucose Random 69 mg/dL (60-115); HDL Cholesterol 33 mg/dL (>40); LDL Cholesterol Calculated 116 mg/dL (<100); Potassium 4.1 mmol/L (3.3-5.1); Sodium 140 mmol/L (135-145); TSH reflex Free T4 0.94 uIU/mL (0.32-4.0); Total Protein 7.8 g/dL (6.5-8.0); Triglycerides 77 mg/dL (<150)
[2024-09-27 11:48] LABS: Insulin 6 uU/mL (2-29)
--- NOTE | 2024-09-29 14:40 | P.CONAN_ITS ---
Documented by User: Madhuri Motta NP 09/29/24 14:41 HPI - Anesthesia Eval Consult details Narrative: 29yo F for Gastrectomy Sleeve,EGD,possibel Diaphragmatic Hernia,possible Ventral Hernia,possible Open PMFSH Active Problems Active Problems: All Active Problems ADHD, predominantly inattentive type (Acute) Vitamin B1 deficiency (Acute) Vitamin B12 deficiency (Acute) Vitamin D deficiency (Acute) Elevated LFTs (Acute) Difficulty concentrating (Acute) Annual physical exam (Acute) Vaginal odor (Acute) Burning with urination (Acute) Low vitamin D level (Acute) Skin lesion (Acute) Anxiety (Acute) Eczema (Acute) Screening for hypothyroidism (Acute) Screening for hyperlipidemia (Acute) Routine screening for STI (sexually transmitted infection) (Acute) Rash (Acute) Vaginal itching (Acute) Missed ab (Acute) Encounter to discuss test results (Acute) Threatened in early (Acute) Pelvic pain affecting (Acute) Morbid obesity with BMI of 45.0-49.9, adult (Acute) Past Medical History Medical History ADHD Cholestasis during Pelvic pain affecting Morbid obesity with BMI of 45.0-49.9, adult Family History Family History Maternal Grandmother History of breast cancer Mother Diabetes mellitus Family history of problems with anesthesia: No Surgical History Surgical History History of esophagogastroduodenoscopy (EGD) History of Problems with Anesthesia: No Social History Social History Housing: Apartment Are you a primary healthcare account manager to a significant other at home: No Do you presently have visiting nurse or other home services: No Alcohol intake: never Patient Tobacco Use Status: Never used Tobacco e-Cigarette/Vaping Use: Never Used Second Hand Smoke Exposure: No Use of substances other than those prescribed or required for medical reasons: No Have you been hit, kicked, punched, or otherwise hurt by someone within the past year? If so, by whom?: No Are you DNR?: No Advance Directives: No Advance Directives Information Provided: No Advance Directives on File: No Patient : No : No Poor oral hygiene: No service: No Current occupational status: employed Cognitive needs: No Hearing needs: No Vision needs: Yes (Glasses) Meds Allergies Allergy/AdvReac Type Severity Reaction Status Date / Time No Known Allergies Allergy Verified 09/21/24 23:35 [No Known Allergies*] Home Medications ?Medication ?Instructions ?Recorded ?Confirmed ?Last Taken ?Type norgestimate 0.25 mg-ethinyl 1 tab PO DAILY 04/28/24 10/03/24 09/05/24 History estradiol 0.035 mg tablet triamcinolone acetonide 0.1 % 1 appl topical DAILY PRN Skin 09/18/24 09/21/24 Unknown History topical cream Irritation Exam Height,Weight and Vital Signs: Height 5 ft 1 in Weight 101.151 kg Pertinent Lab Results Pertinent Lab Results: Laboratory Tests 09/27/24 09/27/24 09:06 09:14 WBC 7.4 RBC 5.19 Hgb 14.1 Hct 41.7 MCV 80.3 MCH 27.2 MCHC 33.8 RDW 13.0 Plt Count 323 MPV 10.0 Immature Gran % (Auto) 0.4 Neut % (Auto) 71.7 Lymph % (Auto) 15.8 L [place] % (Auto) 6.4 Eos % (Auto) 5.2 H Baso % (Auto) 0.5 Lymph # (Auto) 1.2 [place] # (Auto) 0.5 Eos # (Auto) 0.4 Baso # (Auto) 0.0 Abs Immat Gran (auto) 0.03 Absolute Neuts (auto) 5.3 Absolute Nucleated RBC 0.000 Nucleated RBC % (auto) 0.0 PT 13.6 H INR 1.2 H APTT 38.4 H Sodium 140 Potassium 4.1 Chloride 105 Carbon Dioxide 21 L Anion Gap 18 BUN 15 Creatinine 0.69 Estim Creat Clear Calc 130.1 Estimated GFR > 60 Random Glucose 69 Estimat Average Glucose 94 Hemoglobin A1c % 4.9 Insulin Level 6 Calcium 9.3 Total Bilirubin 0.4 AST 19 ALT 15 Alkaline Phosphatase 91 C-Reactive Protein 2.42 H Total Protein 7.8 Albumin 4.2 Triglycerides 77 Cholesterol 164 LDL Cholesterol, Calc 116 H HDL Cholesterol 33 L TSH 0.94 Blood Type O Positive Antibody Screen NEGATIVE Narrative Narrative: EKG 06/2024 Vent. Rate : 82 BPM Atrial Rate : 82 BPM P-R Int : 146 ms QRS Dur : 90 ms QT Int : 386 ms P-R-T Axes : 9 21 12 degrees QTcB Int : 450 ms Normal sinus rhythm Normal ECG No previous ECGs available Assessment and Plan Assessment Anesthesia Assessment: Chart Reviewed Final Anesthetic Review Family History of Problems with Anesthesia: No History of Problems with Anesthesia: No Documented by User: Indy Becker MD 10/03/24 08:05 PMFSH Past Medical History Medical History ADHD Cholestasis during Pelvic pain affecting Morbid obesity with BMI of 45.0-49.9, adult Family History Family History Maternal Grandmother History of breast cancer Mother Diabetes mellitus Surgical History Surgical History History of esophagogastroduodenoscopy (EGD) Social History Social History Housing: Apartment Are you a primary healthcare account manager to a significant other at home: No Do you presently have visiting nurse or other home services: No Alcohol intake: never Patient Tobacco Use Status: Never used Tobacco e-Cigarette/Vaping Use: Never Used Second Hand Smoke Exposure: No Use of substances other than those prescribed or required for medical reasons: No Have you been hit, kicked, punched, or otherwise hurt by someone within the past year? If so, by whom?: No Are you DNR?: No Advance Directives: No Advance Directives Information Provided: No Advance Directives on File: No Patient : No : No Poor oral hygiene: No service: No Current occupational status: employed Cognitive needs: No Hearing needs: No Vision needs: Yes (Glasses) Meds Allergies Allergy/AdvReac Type Severity Reaction Status Date / Time No Known Allergies Allergy Verified 09/21/24 23:35 [No Known Allergies*] Home Medications ?Medication ?Instructions ?Recorded ?Confirmed ?Last Taken ?Type norgestimate 0.25 mg-ethinyl 1 tab PO DAILY 04/28/24 10/03/24 09/05/24 History estradiol 0.035 mg tablet triamcinolone acetonide 0.1 % 1 appl topical DAILY PRN Skin 09/18/24 09/21/24 Unknown History topical cream Irritation Exam Airway Mallampati Class: II TM Dist: >3cm Neck ROM: Full Loose/Missing/Broken Teeth: No Heart: RRR Lungs: CTA Assessment and Plan Assessment Anesthesia Assessment: Anesthesia Plan Discussed Final Anesthetic Review NPO: Yes ASA Class: III Final Preanesthetic Review: Meds/Allgs Chart Reviewed, Consent Obtained/Reviewed and Anes Risks/Benef Reviewed Patient Risk: Intermediate Procedure Risk: Intermediate Anesthetic Plan Anesthetic Plan: GA Disposition: Standard PACU
[2024-10-03] VITALS (12 sets, daily range): BP systolic 112–150; BP diastolic 63–98; PULSE 72–105; RESP 16–18; TEMP 35.8–36.8; O2SAT 96–100; BMI 40.6
[2024-10-03 06:30] LABS: UPreg QC Valid YES; Urine Pregnancy NEGATIVE (NEGATIVE)
[2024-10-03] MEDS: Lactated Ringers 1,000 ML 999 ML IV (06:51)
[2024-10-03] MEDS: Aprepitant 32 MG/4.4 ML VIAL IVPUSH (06:57)
--- NOTE | 2024-10-03 07:28 | PHA.MEDREC ---
Pharmacy Consult ? Medication Reconciliation Pharmacy has reviewed the medication reconciliation done by nursing staff. Verified with patient that she no longer is using ozempic.
--- NOTE | 2024-10-03 07:34 | MHC.SHP ---
Pre-Procedural Eval Section A - 24 Hr Update-Section A only Date of Service: 10/03/24 The patient is an INPATIENT: Yes The patient has been examined within 24 hours of the surgical procedure. The History & Physical has been completed within 30 days and I have reviewed it.: Yes Section B - Complete if H&P > 30 days Chief Complaint: Morbid Obesity Relevant Family History (Specify if Yes): No Relevant Social History: None Present Medications: None Medical History: No relevant PMH History of Previous Operations: No relevant previous surgery Allergies: Allergies Allergy/AdvReac Type Severity Reaction Status Date / Time No Known Allergies Allergy Verified 09/21/24 23:35 [No Known Allergies*] Review of Systems Sugical H&P ROS: Negative: Constitution, Cardiovascular, Respiratory, Neurological, Psychiatric, Hem-Onc, Allergic/Immunologic, Gastrointestinal, Genitourinary, Musculoskeletal, Integumentary, Endocrine and Eyes/Ears/Nose/Throat Exam Surgical H&P Exam: Normal: HEENT, Normal: Heart, Normal: Lungs, Normal: Extremities, Normal: Abdomen, Normal: Skin and Normal: Neurological Plan Diagnosis/Plan: Unchanged I have reviewed the history and physical and performed a pertinent physical examination on my patient. No changes have occurred unless specified. Time Spent With Patient Time: Total time managing care of this patient today ____ minutes.
--- NOTE | 2024-10-03 07:38 | PM.OP ---
Brief Operative Note Date of Service: 10/03/24 Pre-op diagnosis: Morbid obesity Post-op diagnosis: same Procedure: INITIAL PATIENT BMI ON PRESENTATION AT OUR OFFICE: 45 kg/m2 LAST BMI BEFORE SURGERY: 43.1 kg/m2 COMORBIDITIES: ADHD, anxiety ?The patient presented to the Weight Management Program with significant obesity that was negatively impacting the patient's comorbidities as listed above.? The program is a phased program with a special focus on preoperative medical weight management to promote substantial weight loss and prepare the patients for the second phase of the program: bariatric surgery. The patient participated in an intensive weekly lifestyle ?intervention and exercise program during which the patient ?has lost between the initial office visit and the last preoperative visit 26.6lbs, or 10.8% of initial actual body weight. It was deemed appropriate for the patient to now have bariatric surgery. In light of the current Covid-19 pandemic and the well documented strong association of obesity and increased risk of worse outcomes if infected with Covid-19 (REFERENCES:https://pubmed.ncbi.nlm.nih.gov/46139155/,?https://pubmed.ncbi.nlm.nih.gov/34892836/), any delay in undergoing bariatric surgery may lead to the patient's worsening health condition and increased?risk of more severe Covid-19 disease if infected. In addition a recent?study from [facility] published in [facility] on 05/12/2021 ([email or web address]) found that, among patients with obesity, substantial weight loss achieved with surgery was associated with improved outcomes of COVID-19 infection. The findings suggest that obesity can be a modifiable risk factor for the severity of COVID-19 infection. In addition, the patient met the BMI-criteria for bariatric surgery based on the BMI on initial presentation. The patient should not be penalized for achieving such weight loss because ?it is not sustainable long-term without surgical intervention and it was achieved in preparation for bariatric surgery ?under my direction and based on my published research ([email or web address] and?https://www.soard.org/article/[email or web address](97)65730-X/pdf) ?that a 10% preoperative weight loss improves long-term weight loss after surgery and reduces perioperative complications.? Insurance carriers such as [facility] have endorsed my recommendations ?and have included in their policies criteria to include a 10% preoperative weight loss requirement. PROCEDURE: Esophago-gastroscopy, laparoscopic sleeve gastrectomy and laparoscopic gastropexy INDICATIONS: This is a 29 year-old female who was electively scheduled for laparoscopic, possibly open sleeve gastrectomy. The risks and complications of the procedure were discussed with the patient in advance, particularly the possibility of ; pulmonary embolism; staple line leak; bleeding; GERD; cardiac, pulmonary, or renal complications; as well as long-term problems such as insufficient weight loss, vitamin deficiency, strictures, or ulcers. The patient understood all the risks, and was in agreement to proceed with surgery. DESCRIPTION OF PROCEDURE: After informed consent was obtained from the patient, the patient was given preoperative antibiotics, and was transferred to the operating room. After successful induction of general anesthesia, pneumatic compression devices were placed on both lower extremities. An upper endoscopy was performed next. The oropharynx and esophagus appeared to be within normal limits. There was no diaphragmatic hernia present. The stomach was entered. Then after all fluid and air were suctioned and the stomach was fully decompressed, the scope was withdrawn and secured in the mid esophagus. The patient was then prepped and draped in the usual sterile manner, and abdominal access was established at the right upper quadrant with the Elham technique. A 12 mm blunt port was inserted, and the abdomen was insufflated with CO2 to a pressure of 15 mmHg. Under direct visualization, additional ports were placed, specifically two 5 mm Versi-step ports to the left upper quadrant, and a 5 mm Versi-Step port to the right upper quadrant. 1% lidocaine plain was used to infiltrate all port sites as well as all fascia defects. Following that, the patient was placed in a steep reverse Trendelenburg position. An additional 5 mm port was placed to the right flank for the Mediflex retractor that was used to retract the left lobe of the liver. The gastro-esophageal fat pad was opened with the ultrasonic device (Thunderbeat, Olympus) and the anterior esophagus and hiatus were exposed. The angle of His was opened with the ultrasonic device the fundus of the stomach from any diaphragmatic and splenic attachments. I then opened the gastrocolic ligament between the transverse colon and the greater curvature of the stomach with the ultrasonic device to enter the lesser sac and facilitate the ligation of the short gastric vessels. I started at a mid-point along the greater curvature and using the Thunderbeat, all short gastric vessels were divided all the way to the angle of His until the left wili was completely dissected at its entirety. I then divided the gastro-colic ligament distally to a distance of about 3-4 cm proximal to the pylorus. ? The stomach was then divided transversely with two Endo FREDDY-45 and three FREDDY-60 articulating purple loads using the [employer] stapler and loads. Every effort was made that the gastric sleeve had a tubular shape and an even caliber throughout. Once the sleeve resection was completed, the staple line of the gastric sleeve was reinforced with Hemoclips. The resected stomach was retrieved without difficulty from the Elham port. A gastropexy was then performed in order to prevent postoperative GERD and partial gastric volvulus. Several interrupted 2.0 Surgidac sutures were placed between the sleeve's staple line and the previously divided greater omentum and gastro-colic ligament using the Endo-Stitch device. ?An upper endoscopy was performed. There was no narrowing at the GE junction. The scope was easily advanced all the way to the pylorus which was clearly visualized. There was no narrowing anywhere and the sleeve's caliber was even throughout. The sleeve's staple line was inspected and there was no evidence of ischemia, bleeding or dehiscence. At that point the gastroscope was withdrawn from the patient?s mouth while we were decompressing the bowel and the stomach from any remaining air. I looked into the lesser sac to see how the sleeve was situating and it was situating well. There was no bleeding from the staple line, spleen, or short gastric vessels. The Mediflex retractor was removed, and the undersurface of the liver was inspected and there was no bleeding. The patient was placed in supine position. I closed the fascial defect of the 12 mm port site with a figure of eight #1 Polysorb suture. Then 30cc Ropivacaine plain with 10 mg of Dexamethasone were used to infiltrate the fascial closure as well as all skin incisions. At this point, the abdomen was deflated, all ports were removed under direct vision, and no bleeding was noted from any of the port sites. The skin incisions were irrigated with saline and were closed with 4-0 absorbable monofilament sutures. Steri-Strips and OpSites were used to cover all incisions. The patient was extubated and was transferred in stable condition to the recovery room for further care. I was present and performed all maria parts of the procedure. Mr. Green was the assistant branch manager. There were no residents to assist with this case. Chase Carvajal MD, PhD, FACS Surgeon: Johnny Carvajal MD Anesthesia: GETA, local and other (TAP block) Was an Nfl Player used for this Procedure?: Yes Nfl Player: Chang Green Estimated blood loss (mL): 10 IV fluids (mL): 2,000 Urine output (mL): 0 (No Ceja to record output) Pathology: other (1) Stomach, 2) GE junction fat pad) Condition: stable Disposition: PACU
--- NOTE | 2024-10-03 07:39 | P.PNGS_ITS ---
Subjective Subjective Date of Service: 10/04/24 Interval history: Feels well. Mild incisional pain. She is tolerating phase 1 bariatric diet Physical Exam 2 Vital Signs: Vital Signs: Last Vital Signs Temp 96.5 F L 10/03/24 06:43 Pulse 77 10/03/24 07:01 Resp 16 10/03/24 06:43 BP 112/75 10/03/24 06:43 Pulse Ox 97 10/03/24 06:43 O2 Del Method Room Air 10/03/24 06:43 BMI result Body Mass Index 40.6 GI: Inspection: Yes normal to inspection, Yes incision (clean, dry and intact) and Yes obesity Palpation (GI): Soft to palpation Extrem: Right lower extremity: normal to inspection (no calf tenderness) L eft lower extremity: normal to inspection (no calf tenderness) Objective Data Active Medications Lactated Ringer's (Lr) 1,000 mls @ 100 mls/hr IVCONT .Q10H SHIVAM Lactated Ringer's (Lr) 1,000 mls @ 999 mls/hr IV .Q1H1M SHIVAM Stop: 10/03/24 08:15 Last Admin: 10/03/24 06:51 Dose: 999 mls/hr Documented By: JASON Labs 10/04/24 05:40 10/04/24 05:40 Labs: Laboratory Results - last 24 hr 10/03/24 06:13 Urine Test NEGATIVE Procedures Date of Service Date of Service: 10/04/24 Progress Note: A&P Assessment and plan (1) Morbid obesity with BMI of 45.0-49.9, adult: Status: Acute Assessment and Plan: s/p laparoscopic sleeve gastrectomy and gastropexy Doing well Will check am labs and if OK the patient will be discharged home (2) Anxiety: Status: Acute (3) ADHD, predominantly inattentive type: Status: Acute (4) S/P laparoscopic sleeve gastrectomy: Status: Acute Time Spent With Patient Time: Total time managing care of this patient today ____ minutes. Quality Stroke Does the patient have a stroke diagnosis?: No VTE Prior VTE?: No VTE Risk Level:: Surgical - moderate VTE Device Contraindication: N/A - Device Ordered VTE Drug Contraindication: Treatment Not Indicated
[2024-10-03] MEDS: ceFAZolin Sodium/Dextrose,Iso 2 GM/50 ML PIGGYBACK IV ×2 (07:50→13:16)
[2024-10-03] MEDS: Acetaminophen 1,000 MG/100 ML PIGGYBACK 400 MG IV (09:05)
--- NOTE | 2024-10-03 09:36 | PM.DS ---
DS: Providers Provider Date of Service: 10/04/24 Date of admission: 10/03/24 06:08 Date of discharge: 10/04/24 Primary care physician: Rubina Casey PA-C DS: Diagnosis Discharge Diagnosis (1) Morbid obesity with BMI of 45.0-49.9, adult: Status: Acute (2) Anxiety: Status: Acute (3) ADHD, predominantly inattentive type: Status: Acute DS: Summary Hospital Course Hospital Course: ADMITTING DIAGNOSIS: morbid obesity, ? DISCHARGE DIAGNOSIS: same, s/p laparoscopic sleeve gastrectomy ? PAST SURGICAL HISTORY: n/a ? PROCEDURE: upper endoscopy, laparoscopic sleeve gastrectomy ? DISCHARGE SUMMARY: ? History of Present Illness: ? The patient is a?29 year-old woman with a BMI of?45 kg/m2 and associated co-morbidities as described above. The patient had extensive work-up,lost?23.6 lbs preoperatively and was electively scheduled for laparoscopic, possible open sleeve gastrectomy and gastropexy. Risks and complications of the surgery were discussed with the patient in advance, particularly the possibility of , pulmonary embolism, anastomotic leak, bleeding, bowel injury, GERD, cardiac, renal or pulmonary complications. The patient understood all the risks and was in agreement with the surgical plan. ? Hospital Course: ? The patient underwent an uneventful laparoscopic sleeve gastrectomy with gastropexy on the day of admission. Postoperatively, the patient was transferred to the surgical floor. The patient received IV Acetaminophen and IV dilaudid for pain control. Patient was started on bariatric phase 1 diet POD #0. On postoperative day one, the patient was feeling well without nausea, vomiting, fevers, or tachycardia. The patient had some mild incisional pain and the abdomen was soft. ? On the morning of postoperative day one, the patient was continued on 1 ounce of water or ice every half hour. During the day, the patient did fairly well, having some incisional pain, but able to ambulate adequately and to tolerate liquids well. ? Since the patient is doing well, we decided that the patient was ready to be discharged. The patient was given instructions to follow-up with me next week and to call my office for any fever over 101, persistent abdominal pain, nausea, vomiting, GERD, symptoms of DVT such as calf tenderness, or leg swelling, or pulmonary embolism such as chest pain or shortness of breath. The patient was also instructed to drink 40-60 ounces of liquids per day using the 1-ounce cups. The patient had been given prescriptions for Tylenol for pain, Zofran prn for nausea, and pantoprazole and carafate previously. The patient was encouraged to ambulate and use the incentive spirometer. The patient was allowed to shower, but no baths, and encouraged to stay active at home. All of these instructions were given to the patient personally. All questions were answered and the patient understood all instructions, the instructions were also given to the patient in print. Time Attestation Total time managing care of this patient today: 25 mintues. Discharge Coordination Time (in mins): 25 Quality: Safe Use of Opioids Does Pt have an Active Cancer Diagnosis on the Problem List?: No Quality: Stroke Does the patient have a stroke diagnosis?: No Physical Exam Vital Signs: Vital Signs: Last Vital Signs Temp 97.7 F 10/03/24 09:34 Pulse 92 10/03/24 09:34 Resp 18 10/03/24 09:34 BP 150/98 H 10/03/24 09:34 Pulse Ox 100 10/03/24 09:34 O2 Del Method Simple Mask 10/03/24 09:34 O2 Flow Rate 6 10/03/24 09:34 BMI result Body Mass Index 40.6 DS: Data Data Completed and Pending Pending studies at discharge: Pending at discharge 10/03/24 08:56 Surgical [PTH] Routine Labs on day of discharge: Laboratory Results - last 24 hr 10/03/24 06:13 Urine Test NEGATIVE Discharge Plan Discharge Anticipated Discharge Date/Time: 10/04/24 10:00 Patient Disposition: Home, Self-Care Discharge Diagnosis: s/p laparoscopic sleeve gastrectomy Referrals: Rubina Casey PA-C [Primary Care Provider] - 1 Week Discharge Medications: Continued triamcinolone acetonide 0.1 % cream 1 appl topical DAILY PRN (Reason: Skin Irritation) methylphenidate HCl [Ritalin] 10 mg tablet 10 mg PO BID Qty: 60 0RF Rx Instructions: Partial Fill upon patient request. pantoprazole 40 mg tablet,delayed release (DR/EC) 40 mg PO DAILY Qty: 90 0RF sucralfate 100 mg/mL suspension 10 ml PO BID Qty: 600 2RF ondansetron 4 mg tablet,disintegrating 4 mg PO Q12H Qty: 20 0RF Rx Instructions: Only take one every 12 hours as needed if you have nausea Held cholecalciferol (vitamin D3) 125 mcg (5,000 unit) capsule 125 mcg PO DAILY Qty: 90 0RF Hold Instructions: Resume on 10/18/24. mecobalamin (vitamin B12) 1,000 mcg tablet,disintegrating 1,000 mcg sublingual DAILY Qty: 90 0RF Hold Instructions: Resume on 10/18/24. Rx Instructions: place tablet under tongue and allow to dissolve for at least30 secs before swallowing thiamine HCl (vitamin B1) 100 mg tablet 100 mg PO DAILY Qty: 90 0RF Hold Instructions: Resume on 10/18/24. norgestimate-ethinyl estradiol 0.25-35 mg-mcg tablet 1 tab PO DAILY Hold Instructions: until discussed with dr crawford Discharge Orders: Discharge Order (Routine); Ordered 10/04/24 Ordered By: Johnny Crawford Activity on Discharge: No heavy lifting Stand Alone Forms: Patient Portal Discharge page Print Language: Albanian Care Plan Goals: weight loss Health Concerns: morbid obesity Plan of Treatment: No tub baths, sex or returning to work until discussed at first post op appointment. No exercise, alcohol, tobacco or illegal drug use. Continue to use incentive spirometer hourly while awake. Walk in home for 5- 10 minutes every 2 hours during the first week. Follow all instructions in the bariatric handbook and call with any questions.Discharge Instructions 1. Please call your doctor or come back to the emergency room should any new symptoms arise. 2. You will receive a courtesy call from [facility] 24-48 hours after discharge. 3. Activity: abstain from alcohol, practice limited stair climbing, no bending, no driving, no exercise, no illicit substances, no lifting, no sex, no tub bath, no work. 4. Diet: continue as discussed with Dr. Crawford. 5. Dressing Change/Wound Care: Your incision is covered by clear bandages and guaze underneath. If the area is tender, you may apply an ice pack for short intervals (no more than 20 minutes on, followed by at least 20 minutes off). Do not apply heat. Do not use creams, lotions, or topical antibiotics unless instructed to do so by your surgeon. These can cause infection or allergic reaction. 6. Call your doctor if: - Your temperature exceeds 101.5 F - You experience excessive pain or swelling - You have an unexpected reaction to medication - You have excessive bleeding - You experience continued vomiting/nausea - Your incision begins to separate - Your incision shows signs of infection such as increased redness, swelling, excessive pain, heat, or drainage (light blood or clear fluid is normal) 7. General instructions: No lifting greater than 5 lbs for 1 week and not more than 20lbs the next 3?weeks. No driving until seen at the office in 5-7 days after surgery. If you do not move your bowels in the next 2 days, please tell?Dr. Crawford. Please walk around your home every hour or two to prevent blood clots from forming in your legs. You do not need to wake from sleeping to walk. Please sleep in a bed or couch to prevent kinking at the hips and knees. Please take your incentive spirometer (your lung cold press operator) home with you and use it for the next few days to prevent pneumonia. You may shower, no hot tubs, baths or swimming pools.?Please follow the post op diet instructions you are?given by Dr Crawford? and text me daily at 5-6pm for an update.?If you have any issues or concerns or questions please communicate this to him via text.? The Celebrate shakes have all of the bariatric vitamins you need if you consume these shakes. If you are drinking other protein shakes, you will need to purchase the Celebrate multivitamins and calcium that are available in the hospital gift shop on the first floor of the main hospital.??Do not take anything without first discussing with Dr Crawford. Please make sure you are consuming at least 40 ounces of fluids per day starting the?day AFTER your discharge from the hospital. Always drink 1-2 ml per minute using the 5ml?syringe. If you drink faster you may experience?bloating,?gas pain, burping, nausea or heartburn. In that case please slow down your pace and use the syringe to?understand better the?proper?pace and volume of drinking. Do not hesitate to contact the office with any questions at . The patient's medical history has been reviewed and they are considered low risk for post op DVT and therefore DVT prophylaxis is not considered necessary. Travel after surgery was reviewed. The patient has not disclosed any travel plans during the first 30 days after surgery and they have been advised that within the first 30 days after surgery any bus, plane, train or car travel over 2 hours in duration is contraindicated due to the possibility of developing blood clots from immobility. Any travel, needs to include periods of ambulation of 10 minutes in duration every 2 hours.? The patient was instructed to discuss any plans for travel during this period with their bariatric surgeon. Assessment: stable s/p laparoscopic sleeve gastrectomy Discharge Date/Time: 10/04/24 09:21
[2024-10-03 10:06] LABS: Hemoglobin 14.7 g/dl (12.0-16.0)
[2024-10-03 10:25] LABS: Anion Gap 20 (12-20); Blood Urea Nitrogen 4 mg/dL (9-16); Calcium 8.6 mg/dL (8.4-10.2); Carbon Dioxide 16 mmol/L (22-29); Chloride 106 mmol/L (96-108); Creatinine Clr Calc Pharmacy 118.7; Estimated Glomerular Filt Rate > 60; Glucose Random 85 mg/dL (60-115); Potassium 3.6 mmol/L (3.3-5.1); Sodium 138 mmol/L (135-145)
[2024-10-03] MEDS: Lactated Ringers 1,000 ML 100 ML IVCONT ×2 (10:39→19:58)
[2024-10-03] MEDS: Acetaminophen 1,000 MG/100 ML PIGGYBACK 16.7 MG IV ×2 (14:50→19:58)
[2024-10-03] MEDS: Metoclopramide HCl 10 MG/2 ML VIAL IVPUSH (15:01)
[2024-10-04] MEDS: Acetaminophen 1,000 MG/100 ML PIGGYBACK 16.7 MG IV (02:01)
[2024-10-04 03:11] VITALS: BP 130/73; PULSE 81; RESP 18; TEMP 36.3; O2SAT 97
[2024-10-04 05:52] LABS: MANUAL DIFF FLAG NO
[2024-10-04 05:56] LABS: Basophils Percent Auto 0.1 % (0-2); Hematocrit 37.9 % (37.0-47.0); Hemoglobin 12.8 g/dl (12.0-16.0); Imm Gran Abs Auto 0.07 X10*3/uL (0.00-0.03); Imm Gran Pct Auto 0.8 % (0.0-0.4); Lymphocytes Absolute Auto 0.9 X10*3/uL (1.2-4.9); Lymphocytes Percent Auto 10.4 % (20-40); Mean Corpuscular HGB Conc 33.8 g/dl (31.0-35.0); Mean Corpuscular Hemoglobin 26.6 pg (27.0-33.0); Mean Corpuscular Volume 78.6 fL (80.0-98.0); Mean Platelet Volume 10.8 fL (9.4-12.3); Monocytes Absolute Auto 0.2 X10*3/uL (0.1-1.2); Monocytes Percent Auto 2.7 % (2-11); Neutrophils Absolute Auto 7.1 x10*3/uL (2.0-8.3); Platelet Count 322 X10*3/uL (160-400); Red Blood Count 4.82 X10*6/uL (4.20-5.50); Red Cell Distribution Width 13.4 % (11.0-16.0); White Blood Count 8.2 X10*3/uL (4.8-10.8)
[2024-10-04] MEDS: Lactated Ringers 1,000 ML 100 ML IVCONT (05:57)
[2024-10-04] MEDS: Pantoprazole Sodium 40 MG/10 ML VIAL IVPUSH (05:57)
[2024-10-04 06:17] LABS: Anion Gap 20 (12-20); Blood Urea Nitrogen < 3 mg/dL (9-16); Calcium 8.7 mg/dL (8.4-10.2); Carbon Dioxide 11 mmol/L (22-29); Chloride 110 mmol/L (96-108); Creatinine Clr Calc Pharmacy 120.4; Estimated Glomerular Filt Rate > 60; Glucose Random 87 mg/dL (60-115); Sodium 137 mmol/L (135-145)
[2024-10-04 07:37] VITALS: BP 124/81; PULSE 99; RESP 16; TEMP 36.6; O2SAT 97
--- NOTE | 2024-10-04 09:28 | MHC.CM.PN ---
Patient dc'd home self care prior to CM assessment.
--- NOTE | 2024-10-04 10:01 | HO.POSTANES ---
Post Anesthesia Evaluation Post Anesthesia Evaluation Date of Service: 10/04/24 Vital Signs: Vital Signs Temp Pulse Resp BP Pulse Ox O2 Del Method 10/04/24 07:37 97.8 F 99 16 124/81 97 Room Air 10/04/24 03:11 97.4 F 81 18 130/73 97 Room Air 10/03/24 23:27 97.5 F 85 16 118/69 98 Room Air Anesthesia: General Endotracheal-GETA Mental Status: Awake Pain Control: Satisfactory Nausea/Vomiting: None Hydration: Adequate Anesthesia-Related Issues: No Anes. Related Issues
== END 2024-10-04 09:21 | disposition home or self-care (01) | DRG 403 ==
LOC: HO.SSSA 09:39 → HO.S3 09:42
PROVIDERS: Nurse Practitioner; Physician Assistant Surgical; Admitting Provider Surgery; Visit Provider Surgery
PROC: 0DB64Z3 Excision of Stomach, Percutaneous Endoscopic Approach, Vertical (ICD-10-PCS; CPT 43845; principal; 2024-10-03 07:30)
DX: E66.01 Morbid (severe) obesity due to excess calories (principal); F41.9 Anxiety disorder, unspecified; F90.0 Attention-deficit hyperactivity disorder, predominantly inattentive type; Z68.41 Body mass index [BMI] 40.0-44.9, adult; Z79.899 Other long term (current) drug therapy
CPT/HCPCS: 36415; 80048; 80053; 80061; 81025; 83036; 83525; 84443; 85014; 85018; 85025; 85610; 85730; 86140; 86850; 86900; 86901; 88304; 88305; 88307; 88342; A4649; C9145; J0131; J0690; J1100; J1171; J2003; J2250; J2405; J2470; J2704; J2765; J2795; J3010; J7120

== ENCOUNTER → 2024-10-03 06:08 | Outpatient (BNV) | payer OTHER, SELFPAY | PROVIDERS: Admitting Provider Surgery; Visit Provider Surgery | DX: E66.01 Morbid (severe) obesity due to excess calories (principal); Z68.42 Body mass index [BMI] 45.0-49.9, adult; F41.9 Anxiety disorder, unspecified; F90.0 Attention-deficit hyperactivity disorder, predominantly inattentive type; Z98.84 Bariatric surgery status | CPT/HCPCS: 43659; 43775; 99024; 99499 ==

== ENCOUNTER 2024-10-12 09:30 | Outpatient (AMB) | payer OTHER, SELFPAY ==
[2024-10-12 09:40] VITALS: BP 111/81; PULSE 84; TEMP 36.2; O2SAT 98; BMI 38.1
--- NOTE | 2024-10-12 09:40 | A.OFFVIS_ITS ---
VS Expanded 10/12/24 09:40 BP 111/81 Blood Pressure Location Rt brachial Blood Pressure Position Sitting Pulse 84 Pulse Source Pulse Oximeter Temp 97.1 F Temperature Source Temporal Artery Scan Pulse Oximetry 98 Oxygen Delivery Method Room Air Height 5 ft 2 in Weight 208 lb 3.2 oz BMI 38.1 Body Fat % 2.4 Body Fat Mass 109.2 Fat Free Mass 99.0 Visceral Fat Rating 12.0 Body Water % 34.2 Body Water Mass 71.2 Muscle Mass/Score 94.0 Basal Metabolic Rate/Score 1,482 Intake Visit Reasons: (OV) PO LSG 10/03/24 Allergies No Known Allergies [No Known Allergies*] Allergy (Verified 10/12/24 09:42) HPI Comments Details: Patient is a pleasant 29-year-old female who returns to the office today in follow-up. She is approximately 9 days post sleeve gastrectomy performed on 09/2024. She is tolerating 3 fair life shakes, 8 oz in the morning, 8 oz mid day and a whole bottle in the afternoon. She is getting about 40 oz of fluid per day. She has moved her bowels. She states that she would have belching with her fluid intake, discussed strategies to improve this including using the syringe and making sure all air is out of the syringe prior to swallowing. Additionally, encouraged to follow the recommendations for the pace of drinking including 2 mL/minute or 1 oz every 15 minutes. [facility] Medical History (Updated 10/05/24 @ 00:02 by Bay Mcneal) Annual physical exam Vaginal odor Burning with urination Skin lesion Screening for hypothyroidism Screening for hyperlipidemia Routine screening for STI (sexually transmitted infection) Rash Vaginal itching Missed ab Encounter to discuss test results Threatened in early ADHD Cholestasis during Pelvic pain affecting Morbid obesity with BMI of 45.0-49.9, adult Surgical History (Updated 10/12/24 @ 09:42 by Mary Beth Dominguez CMA) S/P laparoscopic sleeve gastrectomy History of esophagogastroduodenoscopy (EGD) Family History Maternal Grandmother History of breast cancer Mother Diabetes mellitus Social History Household Members: Family Housing: Apartment Are you a primary auto care center manager to a significant other at home: No Do you presently have visiting nurse or other home services: No Alcohol intake: never Patient Tobacco Use Status: Never used Tobacco e-Cigarette/Vaping Use: Never Used Second Hand Smoke Exposure: No service: No Current occupational status: employed Cognitive needs: No Hearing needs: No Vision needs: Yes (Glasses) Physical Exam Vital Signs: Last Vital Signs Temp 97.1 F 10/12/24 09:40 Pulse 84 10/12/24 09:40 BP 111/81 10/12/24 09:40 Pulse Ox 98 10/12/24 09:40 Oxygen Delivery Method Room Air 10/12/24 09:40 BMI result Body Mass Index 38.1 GI Inspection: Yes incision (Clean, dry, intact.) Assessment & Plan Assessment & Plan (1) S/P laparoscopic sleeve gastrectomy: Code(s): Z98.84 - Bariatric surgery status Category: Surgical Plan: POD 9 s/p LSG on 09/[address] Carvajal Weight loss prior to surgery was 23.6 pounds or 9.5 % TBWL. Original weight on 07/07/2024 was 246 pounds and op weight was 222.4 pounds. Be sure to text Dr Carvajal exactly 1 week after surgery your weight from your home scale so he can adjust your meal plan. Continue meal plan until f/u angy Downing in 2 weeks May shower, no submersion in bath for another week Continue abdominal binder with activity and exercise for the next 2 weeks. Exercise prior to surgery was walking pad and walking outside and may resume No abdominal exercises for 6 weeks post operatively Will be emailed link to post op video for review Reminded of the pace of drinking, 2 mL per minute, 1 oz/15 min.
== END 2024-10-12 10:17 | disposition home or self-care (01) ==
LOC: HO.HBS 09:31
PROVIDERS: Visit Provider Physician Assistant Surgical
DX: Z98.84 Bariatric surgery status (principal)
CPT/HCPCS: 99024

== ENCOUNTER → 2024-10-12 09:30 | Outpatient (BNVA) | payer OTHER, SELFPAY | PROVIDERS: Visit Provider Physician Assistant Surgical | DX: Z48.815 Encounter for surgical aftercare following surgery on the digestive system (principal); Z98.84 Bariatric surgery status | CPT/HCPCS: 99212 ==

== ENCOUNTER 2024-10-13 13:41 | Outpatient (AMB) | payer OTHER, SELFPAY ==
--- NOTE | 2024-10-13 13:30 | MHC.WMTHER ---
Intake Intake Visit Reasons: TV PO LSG 10/03/24 Allergies No Known Allergies (No Known Allergies*) Allergy (Verified 10/12/24 09:42) [facility] Medical History (Updated 10/05/24 @ 00:02 by Bay Mcneal) Annual physical exam Vaginal odor Burning with urination Skin lesion Screening for hypothyroidism Screening for hyperlipidemia Routine screening for STI (sexually transmitted infection) Rash Vaginal itching Missed ab Encounter to discuss test results Threatened in early ADHD Cholestasis during Pelvic pain affecting Morbid obesity with BMI of 45.0-49.9, adult Surgical History (Updated 10/12/24 @ 09:42 by Mary Beth Dominguez CMA) S/P laparoscopic sleeve gastrectomy History of esophagogastroduodenoscopy (EGD) Family History Maternal Grandmother History of breast cancer Mother Diabetes mellitus Social History Household Members: Family Housing: Apartment Are you a primary pharmacy customer care specialist to a significant other at home: No Do you presently have visiting nurse or other home services: No Alcohol intake: never Patient Tobacco Use Status: Never used Tobacco e-Cigarette/Vaping Use: Never Used Second Hand Smoke Exposure: No service: No Current occupational status: employed Cognitive needs: No Hearing needs: No Vision needs: Yes (Glasses) Behavioral Health Assessment Weight Management Therapy Therapy Notes Details Subjective: PT had weight-loss surgery on 10/03/2024. PT reports her weight on day of surgery was 215Lbs, and most recent weight as of yesterday, 10/12/2024 as 205Lbs Her target weight goal is 150Lbs. She has noticed this week thinking more about food. Happening more when alone. Her mother, sister, has been big supports. Objective: The patient presents for a behavioral health post-operative follow-up visit. A guided emotional check-in was conducted to assess her current functioning, recovery, mood, and emotional state. Psychoeducation was provided on the emotional and psychological adjustments commonly experienced after bariatric surgery. We also focused on distinguishing between hunger and cravings or food thoughts, exploring possible reasons for these experiences, and strategies to work on her mindset. Emphasis was placed on becoming mindful of her physical and mental needs during these times while staying on track. The PHQ-9 was administered to screen for symptoms of depression. The importance of adhering to the Weight Management Program (WMP) providers' instructions was emphasized, including the pace of drinking and following the meal and exercise plan. Tips and recommendations for long-term success were also discussed. Program resources were provided, and the patient was invited to join our Facebook group to stay informed about ongoing events and activities. Assessment/Response: Mental status: WNL Risk reported/identified: None Food/Weight/Diet Expectations of change The patient began the program on 07/07 at a starting weight of 246 lbs. Her recorded weight on 07/31/2024 was 235 lbs. She reports her weight on the day of surgery (10/03/2024) was 215 lbs, and her most recent weight, as of 10/12/2024, is 205 lbs. Her target weight goal is 150 lbs. PT is implementing the following: Current meal plan: Liquid plan - 3 shakes per day, Exercise plan: Scale: yes Communication w/ provider: yes, Questionnaires PHQ-9 Over the last 2 weeks, how often have you been bothered by any of the following problems? 1. Little interest or pleasure in doing things: not at all 2. Feeling down, depressed, or hopeless: not at all 3. Trouble falling or staying asleep, or sleeping too much: several days (sleeping more.) 4. Feeling tired or having little energy: several days 5. Poor appetite or overeating: not at all 6. Feeling bad about yourself - or that you are a failure or have let yourself or your family down: not at all 7. Trouble concentrating on things, such as reading the newspaper or watching television: not at all 8. Moving or speaking so slowly that other people could have noticed. Or the opposite - being so fidgety or restless that you have been moving around a lot more than usual: not at all 9. Thoughts that you would be better off or of hurting yourself in some way: not at all Total score: 2 Depression Screening Interpretation: Negative Depression Screening Done: Yes 29611 - PHQ-9 Billing: Yes Source: Developed by Drs. Colton Whitmore, Chula Moreira, Golden Patrick and colleagues, with an educational miguel angel from [employer]. Assessment & Plan Assessment & Plan (1) Adjustment disorder, unspecified: Code(s): F43.20 - Adjustment disorder, unspecified (2) Status post bariatric surgery: Code(s): Z98.84 - Bariatric surgery status Plan Patient expressed a need for additional emotional support to manage current stressors. A follow-up behavioral health session is scheduled for 10/31/2024 to continue therapeutic work and provide ongoing support. Telehealth Telehealth Telehealth [facility]: [facility] Location of provider rendering services: practice address Location of patient: address on file Patient Identification confirmed using: Name, : Yes Telehealth method: voice only Patient verbally consented to treatment: Yes Patient verbally consented to billing insurance company: Yes Patient informed of any privacy concerns related to visit: Yes Minutes spent on Phone/Video with Pt.: 30 Coding Level of Care Code Established Pt Tele Psytx 30 mins (32898) Patient Type Established Diagnoses Adjustment disorder, unspecified F43.20 Status post bariatric surgery Z98.84 Additional Codes PHQ-9 - 10586 - PHQ-9 Billing: Yes ([id number]) Time Spent (min) 30
== END 2024-10-13 14:02 | disposition home or self-care (01) ==
LOC: HO.HBST 13:41
PROVIDERS: Visit Provider Counselor Mental Health
DX: F43.20 Adjustment disorder, unspecified (principal); Z98.84 Bariatric surgery status
CPT/HCPCS: 90832

== ENCOUNTER → 2024-10-13 13:41 | Outpatient (BNVA) | payer OTHER, SELFPAY | PROVIDERS: Visit Provider Counselor Mental Health ==

== ENCOUNTER 2024-10-25 14:00 | Outpatient (AMB) | payer OTHER, SELFPAY ==
[2024-10-25 10:16] VITALS: BMI 37.2
--- NOTE | 2024-10-25 10:16 | A.OFFVIS_ITS ---
VS Expanded 10/25/24 10:16 Height 5 ft 2 in Weight 203 lb 4 oz BMI 37.2 Body Fat % 50.9 Fat Free Mass 100 Visceral Fat Rating 21 Body Water % 33.8 Muscle Mass/Score 94 Basal Metabolic Rate/Score 1,348 Intake Visit Reasons: (TV) PO LSG 10/03/24 Allergies No Known Allergies [No Known Allergies*] Allergy (Verified 10/12/24 09:42) HPI Comments Details: This?a?29?yo female who is s/p LSG without hiatal hernia repair on?09/2024. Presents for 3 week post op visit. Weight today is 203.4 pounds, with a BMI of 37.2. There has been a 42.6 pound weight loss,(initial weight 246 pounds) since starting the program on 07/07/2024 reflecting a 17.3 % total body weight loss and a weight loss of 19 pounds since surgery (operative weight 222.4 pounds) reflecting a 8.5 % TBWL since surgery. No complaints of nausea, emesis, abdominal pain or reflux. last BM 1 week ago, no complaints of abdominal pain Present meal plan includes: isopure 1/2 scoop in 8 oz almond milk at 8-10, 11-1 [employer] RTD drink 26 gm shake at 2-5 Built bar at 5-8 pm Drinking 40 oz ? Exercise routine includes: wakling outside 2-3 mi daily [facility] Medical History (Updated 10/05/24 @ 00:02 by Bay Mcneal) Annual physical exam Vaginal odor Burning with urination Skin lesion Screening for hypothyroidism Screening for hyperlipidemia Routine screening for STI (sexually transmitted infection) Rash Vaginal itching Missed ab Encounter to discuss test results Threatened in early ADHD Cholestasis during Pelvic pain affecting Morbid obesity with BMI of 45.0-49.9, adult Surgical History (Updated 10/12/24 @ 09:42 by Mary Beth Dominguez CMA) S/P laparoscopic sleeve gastrectomy History of esophagogastroduodenoscopy (EGD) Family History Maternal Grandmother History of breast cancer Mother Diabetes mellitus Social History Household Members: Family Housing: Apartment Are you a primary summer child caregiver to a significant other at home: No Do you presently have visiting nurse or other home services: No Alcohol intake: never Patient Tobacco Use Status: Never used Tobacco e-Cigarette/Vaping Use: Never Used Second Hand Smoke Exposure: No service: No Current occupational status: employed Cognitive needs: No Hearing needs: No Vision needs: Yes (Glasses) Telehealth Telehealth Telehealth Platform: Telephone Location of provider rendering services: practice address Location of patient: address on file Patient Identification confirmed using: Name, : Yes Telehealth method: voice only Patient verbally consented to treatment: Yes Patient verbally consented to billing insurance company: Yes Patient informed of any privacy concerns related to visit: Yes Minutes spent on Phone/Video with Pt.: 15 Assessment & Plan Assessment & Plan (1) S/P laparoscopic sleeve gastrectomy: Code(s): Z98.84 - Bariatric surgery status Category: Surgical Plan: Patient is doing fairly well, she will continue to communicate with Dr. Carvajal regarding her meal plan. She states that she did run out of her isopure shake product and was using just the fair life shake product however I explained to her that they were not exactly equivalent and she is planning on purchasing more of the isopure today. Additionally, constipation has been an issue, discussed how fluids and constipation are related. She will try to drink a little bit more fluids, add Colace and p.r.n. Dulcolax suppository. She will communicate this with Dr. Carvajal and she will also obtain milk of magnesia. We will have her return to the office in a proximally 3-4 weeks. Medications: New bisacodyl (Dulcolax (bisacodyl)) [address] DAILY PRN 12 ea 0RF constipation docusate sodium (Colace) 100 mg PO DAILY 90 days 90 caps 0RF
== END 2024-10-25 14:47 | disposition home or self-care (01) ==
LOC: HO.HBS 14:46
PROVIDERS: Visit Provider Physician Assistant Surgical
DX: Z98.84 Bariatric surgery status (principal)
CPT/HCPCS: 99024

== ENCOUNTER → 2024-10-25 14:00 | Outpatient (BNVA) | payer OTHER, SELFPAY | PROVIDERS: Visit Provider Physician Assistant Surgical | DX: Z98.84 Bariatric surgery status (principal) | CPT/HCPCS: 99212 ==

== ENCOUNTER 2024-10-31 09:36 | Outpatient (AMB) | payer OTHER, SELFPAY ==
--- NOTE | 2024-10-31 09:15 | A.OFFWM_ITS ---
Intake Intake Visit Reasons: TV PO LSG 10/03/24 Allergies No Known Allergies [No Known Allergies*] Allergy (Verified 10/12/24 09:42) [facility] Medical History (Updated 10/05/24 @ 00:02 by Bay Mcneal) Annual physical exam Vaginal odor Burning with urination Skin lesion Screening for hypothyroidism Screening for hyperlipidemia Routine screening for STI (sexually transmitted infection) Rash Vaginal itching Missed ab Encounter to discuss test results Threatened in early ADHD Cholestasis during Pelvic pain affecting Morbid obesity with BMI of 45.0-49.9, adult Surgical History (Updated 10/12/24 @ 09:42 by Mary Beth Dominguez CMA) S/P laparoscopic sleeve gastrectomy History of esophagogastroduodenoscopy (EGD) Family History Maternal Grandmother History of breast cancer Mother Diabetes mellitus Social History Household Members: Family Housing: Apartment Are you a primary adult care provider to a significant other at home: No Do you presently have visiting nurse or other home services: No Alcohol intake: never Patient Tobacco Use Status: Never used Tobacco e-Cigarette/Vaping Use: Never Used Second Hand Smoke Exposure: No service: No Current occupational status: employed Cognitive needs: No Hearing needs: No Vision needs: Yes (Glasses) Behavioral Health Assessment Weight Management Therapy Therapy Notes Details Subjective: PT reports been doing better since our last visit. Reported not losing weight at the rate the Dr expects and this is making her feel dissapointed. Denies hunger, reports mood is stable in general. Objective: The patient presents for a post-operative behavioral health follow-up visit conducted over the phone. We discussed her current functioning and challenges. A strength-based therapy approach and cognitive behavioral therapy (CBT) were employed to work on her mindset. We identified her needs and developed alternative strategies, focusing on behavioral activation and reflecting on non- scale victories for mood while continue building discipline for weekly weight- loss goals. Cognitive reframing techniques were used to address negative self-talk, and mindfulness practices were encouraged to help her remain present. Assessment/Response: * Mental status: WNL * Risk reported/identified: None Food/Weight/Diet Expectations of change The patient began the program on 02/21/25 at a starting weight of 246 lbs. Her recorded weight on 07/31/2024 was 235 lbs. She reports her weight on the day of surgery (10/03/2024) was 215 lbs, and her most recent weight, as of 10/12/2024, is 205 lbs. Her target weight goal is 150 lbs. PO weight 10/31/2024: 201Lbs. Currently losing about 2Lbs at week. PT is implementing the following: Current meal plan: Combination of shakes and bars - 8oz shake 8-10 am, built bar 11-2 pm, 3-5 pm full shake, 7-10 pm bar. Exercise plan: Walks - 300 hernandez per day. Scale: yes Communication w/ provider: yes, Assessment & Plan Assessment & Plan (1) Adjustment disorder, unspecified: Code(s): F43.20 - Adjustment disorder, unspecified (2) Status post bariatric surgery: Code(s): Z98.84 - Bariatric surgery status Plan F/up in 3 weeks. Next nusrat 11/21/2024 at 9am, PV Telehealth Telehealth Telehealth Platform: Telephone Location of provider rendering services: practice address Location of patient: address on file Patient Identification confirmed using: Name, : Yes Telehealth method: voice only Patient verbally consented to treatment: Yes Patient verbally consented to billing insurance company: Yes Patient informed of any privacy concerns related to visit: Yes Minutes spent on Phone/Video with Pt.: 45 Coding Level of Care Code Established Pt Tele Psytx 45 mins (82115) Patient Type Established Diagnoses Adjustment disorder, unspecified F43.20 Status post bariatric surgery Z98.84 Time Spent (min) 45
== END 2024-10-31 10:06 | disposition home or self-care (01) ==
LOC: HO.HBST 09:36
PROVIDERS: Visit Provider Counselor Mental Health
DX: F43.20 Adjustment disorder, unspecified (principal); Z98.84 Bariatric surgery status
CPT/HCPCS: 90834

== ENCOUNTER → 2024-10-31 09:36 | Outpatient (BNVA) | payer OTHER, SELFPAY | PROVIDERS: Visit Provider Counselor Mental Health ==

== ENCOUNTER 2024-11-28 14:00 | Outpatient (AMB) | payer OTHER, SELFPAY ==
--- NOTE | 2024-11-28 08:35 | A.OFFVIS_ITS ---
VS Expanded 11/28/24 08:36 Height 5 ft 2 in Weight 189 lb 8 oz BMI 34.7 Body Fat % 46.8 Body Fat Mass 88.8 Fat Free Mass 101 Visceral Fat Rating 19 Body Water % 36.5 Body Water Mass 69.2 Muscle Mass/Score 94.8 Basal Metabolic Rate/Score 1,357 Intake Visit Reasons: (TV) PO LSG 10/03/24 Allergies No Known Allergies (No Known Allergies*) Allergy (Verified 10/12/24 09:42) HPI Comments Details: This?a?29?yo female who is s/p LSG without hiatal hernia repair on?10/03/2024. Presents for 2 month post op visit. Weight today is 189.8 pounds, with a BMI of 34.7. There has been a 56.2 pound weight loss,(initial weight 246 pounds) since starting the program on 07/07/2024 reflecting a 22.8 % total body weight loss and a weight loss of 32.6 pounds since surgery (operative weight 222.4 pounds) reflecting a 14.6 % TBWL since surgery. No complaints of nausea, emesis, abdominal pain or reflux. Taking bariatric chewable mvi Present meal plan includes: 8 oz rtd fairlife at 8-10, built bar 11-2 Fairlife RTD drink 26 gm shake at 3-6 Built bar at 7-10 pm Drinking 45 oz ? Exercise routine includes: walking pad, 300 calories [facility] Medical History (Updated 10/05/24 @ 00:02 by Bay Mcneal) Annual physical exam Vaginal odor Burning with urination Skin lesion Screening for hypothyroidism Screening for hyperlipidemia Routine screening for STI (sexually transmitted infection) Rash Vaginal itching Missed ab Encounter to discuss test results Threatened in early ADHD Cholestasis during Pelvic pain affecting Morbid obesity with BMI of 45.0-49.9, adult Surgical History (Updated 10/12/24 @ 09:42 by Mary Beth Dominguez CMA) S/P laparoscopic sleeve gastrectomy History of esophagogastroduodenoscopy (EGD) Family History Maternal Grandmother History of breast cancer Mother Diabetes mellitus Social History Household Members: Family Housing: Apartment Are you a primary home care physical therapist to a significant other at home: No Do you presently have visiting nurse or other home services: No Alcohol intake: never Patient Tobacco Use Status: Never used Tobacco e-Cigarette/Vaping Use: Never Used Second Hand Smoke Exposure: No service: No Current occupational status: employed Cognitive needs: No Hearing needs: No Vision needs: Yes (Glasses) Telehealth Telehealth Telehealth Platform: Telephone Location of provider rendering services: practice address Location of patient: address on file Patient Identification confirmed using: Name, : Yes Telehealth method: voice only Patient verbally consented to treatment: Yes Patient verbally consented to billing insurance company: Yes Patient informed of any privacy concerns related to visit: Yes Minutes spent on Phone/Video with Pt.: 15 Assessment & Plan Assessment & Plan (1) S/P laparoscopic sleeve gastrectomy: Code(s): Z98.84 - Bariatric surgery status Category: Medical Plan: Patient is doing well overall. Tolerating her meal plan. Communicating with Dr. Carvajal. Does not wish to add food at this time. Encouraged to continue 300 calories burned daily. We will have her return to the office in approximately 1 month
[2024-11-28 08:36] VITALS: BMI 34.7
== END 2024-11-28 14:33 | disposition home or self-care (01) ==
LOC: HO.HBS 14:18
PROVIDERS: Visit Provider Physician Assistant Surgical
DX: Z98.84 Bariatric surgery status (principal)
CPT/HCPCS: 99024

== ENCOUNTER → 2024-11-28 14:00 | Outpatient (BNVA) | payer OTHER, SELFPAY | PROVIDERS: Visit Provider Physician Assistant Surgical | DX: Z98.84 Bariatric surgery status (principal) | CPT/HCPCS: 99212 ==

== ENCOUNTER 2025-01-01 09:00 | Outpatient (AMB) | payer OTHER, SELFPAY ==
--- NOTE | 2025-01-01 09:05 | MHC.WMTHER ---
Intake Intake Visit Reasons: (TV) PO LSG 10/03/24 Allergies No Known Allergies (No Known Allergies*) Allergy (Verified 10/12/24 09:42) [facility] Medical History (Updated 10/05/24 @ 00:02 by Bay Mcneal) Annual physical exam Vaginal odor Burning with urination Skin lesion Screening for hypothyroidism Screening for hyperlipidemia Routine screening for STI (sexually transmitted infection) Rash Vaginal itching Missed ab Encounter to discuss test results Threatened in early ADHD Cholestasis during Pelvic pain affecting Morbid obesity with BMI of 45.0-49.9, adult Surgical History (Updated 10/12/24 @ 09:42 by Mary Beth Dominguez CMA) S/P laparoscopic sleeve gastrectomy History of esophagogastroduodenoscopy (EGD) Family History Maternal Grandmother History of breast cancer Mother Diabetes mellitus Social History Household Members: Family Housing: Apartment Are you a primary healthcare interpreter to a significant other at home: No Do you presently have visiting nurse or other home services: No Alcohol intake: never Patient Tobacco Use Status: Never used Tobacco e-Cigarette/Vaping Use: Never Used Second Hand Smoke Exposure: No service: No Current occupational status: employed Cognitive needs: No Hearing needs: No Vision needs: Yes (Glasses) Behavioral Health Assessment Weight Management Therapy Therapy Notes Details Subjective: Patient reports feeling significantly better since the last visit. She has transitioned to a new meal plan that includes more solid foods and is tolerating it well overall. However, she notes difficulty drinking the shakes. Her mood is reported as good, and she states that work is going well. She is preparing to go on a cruise in January. Objective: Patient presents for a follow-up post-operative behavioral health appointment. Session focused on current functioning and post-op behavioral challenges. Explored ways to stay aligned with her goals and remain accountable to her established vision for success. Psychoeducation was provided regarding the impact of stress and sleep on recovery and weight management, along with practical strategies to improve these areas. Collaboratively brainstormed strategies to maintain progress while on vacation, and addressed specific challenges, including family negative comments,, managing social expectations, and navigating gatherings. Patient was provided with coping tools/resources to support these areas. Assessment/Response: Mental status: Within normal limits. No concerns noted. Risk reported/identified: none Food/Weight/Diet Expectations of change The patient began the program on July 07, 2024, at a starting weight of 246 pounds. Her recorded weight on 07/31/2024 was 235 lbs. She reports her weight on the day of surgery (10/03/2024) was 215 lbs, and her most recent weight, as of 10/12/2024, is 205 lbs. Her target weight goal is 150 lbs. PO weight 10/31/2024: 201Lbs. PO weight 12/26/2024: 180Lbs . Currently losing about 3Lbs a week. PT is implementing the following: Current meal plan: 2 shakes, 2 bars, dinner (Chicken/broccoli) Exercise plan: Walking pad - 300 hernandez per day. Scale: yes Communication w/ provider: yes. Assessment & Plan Assessment & Plan (1) Adjustment disorder, unspecified: Code(s): F43.20 - Adjustment disorder, unspecified (2) Status post bariatric surgery: Code(s): Z98.84 - Bariatric surgery status Plan Patient declined further behavioral health visits at this time, stating she feels capable of continuing independently. She was reminded that support remains available as needed in the future. Telehealth Telehealth Telehealth Platform: [facility] Location of provider rendering services: other (Home office. [place], [place]) Location of patient: address on file Patient Identification confirmed using: Name, : Yes Telehealth method: voice only Patient verbally consented to treatment: Yes Patient verbally consented to billing insurance company: Yes Patient informed of any privacy concerns related to visit: Yes Minutes spent on Phone/Video with Pt.: 44 Coding Level of Care Code Established Pt Tele Psytx 45 mins (47972) Patient Type Established Diagnoses Adjustment disorder, unspecified F43.20 Status post bariatric surgery Z98.84 Time Spent (min) 44
== END 2025-01-01 09:59 | disposition home or self-care (01) ==
LOC: HO.HBST 09:19
PROVIDERS: Visit Provider Counselor Mental Health
DX: F43.20 Adjustment disorder, unspecified (principal); Z98.84 Bariatric surgery status
CPT/HCPCS: 90834

== ENCOUNTER 2025-01-08 14:00 | Outpatient (AMB) | payer OTHER, SELFPAY ==
[2025-01-08 12:09] VITALS: BMI 32.2
--- NOTE | 2025-01-08 12:09 | A.OFFVIS_ITS ---
VS Expanded 01/08/25 12:09 Height 5 ft 2 in Weight 176 lb BMI 32.2 Intake Visit Reasons: (TV) PO LSG 10/03/24 Allergies No Known Allergies (No Known Allergies*) Allergy (Verified 10/12/24 09:42) HPI Comments Details: This?a?29?yo female who is s/p LSG without hiatal hernia repair on?10/03/2024. Presents for 3 month post op visit. Weight today is 176 pounds, with a BMI of 32.2. There has been a 70 pound weight loss,(initial weight 246 pounds) since starting the program on 07/07/2024 reflecting a 28.4 % total body weight loss and a weight loss of 46.4 pounds since surgery (operative weight 222.4 pounds) reflecting a 20.8 % TBWL since surgery. No complaints of nausea, emesis, abdominal pain or reflux. Taking bariatric chewable mvi Meal plan changed by Dr Carvajal, she is following exactly Present meal plan includes: Orgain 1 scoop in 8 oz almond milk at 8-10, built bar 11-1 another shake at 2-4 meal at 5 pm 2 forks protein and 2 forks veg built bar 7-9 Drinking 40-50 oz ? Exercise routine includes: walking pad, 350 calories 5 days per week. [facility] Medical History (Updated 10/05/24 @ 00:02 by Bay Mcneal) Annual physical exam Vaginal odor Burning with urination Skin lesion Screening for hypothyroidism Screening for hyperlipidemia Routine screening for STI (sexually transmitted infection) Rash Vaginal itching Missed ab Encounter to discuss test results Threatened in early ADHD Cholestasis during Pelvic pain affecting Morbid obesity with BMI of 45.0-49.9, adult Surgical History (Updated 10/12/24 @ 09:42 by Mary Beth Dominguez CMA) S/P laparoscopic sleeve gastrectomy History of esophagogastroduodenoscopy (EGD) Family History Maternal Grandmother History of breast cancer Mother Diabetes mellitus Social History Household Members: Family Housing: Apartment Are you a primary child care specialist to a significant other at home: No Do you presently have visiting nurse or other home services: No Alcohol intake: never Patient Tobacco Use Status: Never used Tobacco e-Cigarette/Vaping Use: Never Used Second Hand Smoke Exposure: No service: No Current occupational status: employed Cognitive needs: No Hearing needs: No Vision needs: Yes (Glasses) Telehealth Telehealth Telehealth Platform: Telephone Location of provider rendering services: practice address Location of patient: address on file Patient Identification confirmed using: Name, : Yes Telehealth method: voice only Patient verbally consented to treatment: Yes Patient verbally consented to billing insurance company: Yes Patient informed of any privacy concerns related to visit: Yes Minutes spent on Phone/Video with Pt.: 15 Assessment & Plan Assessment & Plan (1) S/P laparoscopic sleeve gastrectomy: Code(s): Z98.84 - Bariatric surgery status Category: Surgical Plan: Patient is doing very well. Following the meal plan as directed by Dr. Carvajal. Encouraged to increase exercise, calories burned, 2 400 as she is exercising 5 days a week. Additionally discussed adding in a day or 2 at the gym as a substi tute for her walking pad. She inquired about home videos and I told her that she certainly could add these but they are not to be done instead of the walking pad or cardio commitment at the gym. We will have her return to the office as scheduled
== END 2025-01-08 14:28 | disposition home or self-care (01) ==
LOC: HO.HBS 14:15
PROVIDERS: Visit Provider Physician Assistant Surgical
DX: E66.9 Obesity, unspecified (principal); Z68.32 Body mass index [BMI] 32.0-32.9, adult; Z90.3 Acquired absence of stomach [part of]; Z98.84 Bariatric surgery status
CPT/HCPCS: 98013